=== PATIENT | female | born 1990 | race Caucasian/White ===

== ENCOUNTER → 2016-03-15 | Outpatient (CLI) | payer OTHER | LOC: RAD 09:40 | PROVIDERS: ATTEND Family Medicine | DX: R11.0 Nausea (principal); R10.2 Pelvic and perineal pain; K25.9 Gastric ulcer, unspecified as acute or chronic, without hemorrhage or perforation | CPT/HCPCS: 74176 ==

== ENCOUNTER → 2016-03-15 | Outpatient (CLI) | payer OTHER | LOC: CCC 10:10 | DX: E06.3 Autoimmune thyroiditis (principal) | CPT/HCPCS: 36415; 84443 ==

== ENCOUNTER 2016-04-25 12:50 | Emergency (ER) | payer OTHER ==
[2016-04-25 13:01] VITALS: BP 138/92
--- NOTE | 2016-04-25 13:08 | ER Document Report ---
ED Medical Screen (RME) - General Stated Complaint: NAUSEA,HEADACHE,BLURRED VISION Notes: 25 yo female c/o headache, dizziness, blurred double vision x 2 days. + cold s/ s x 4 days. +nausea, no fever TRAVEL OUTSIDE OF THE [place] IN LAST 30 DAYS: No - Related Data Allergies/Adverse Reactions: banana [Banana] Allergy (Severe, Verified 04/25/16 13:04) Anaphylaxis fluticasone propionate [From Flonase] Allergy (Intermediate, Verified 04/25/16 13:04) nasal congestion levothyroxine sodium [Levothyroxine Sodium] Allergy (Mild, Verified 04/25/16 13: 04) methocarbamol [From Robaxin] Adverse Reaction (Severe, Verified 04/25/16 13:04) Past Medical History - Past Medical History Cardiac Medical History: Reports: Hx Hypertension Pulmonary Medical History: Reports: Hx Asthma Neurological Medical History: Reports: Hx Seizures Endocrine Medical History: Reports: Hx Hypothyroidism GI Medical History: Reports: Hx Diverticulitis, Hx Gastritis, Hx Gastroesophageal Reflux Disease, Hx Hiatal Hernia Musculoskeltal Medical History: Reports Hx Musculoskeletal Trauma Psychiatric Medical History: Reports: Hx Anxiety, Hx Bipolar Disorder, Hx Borderline Personality Disorder, Hx Depression, Hx Schizophrenia Traumatic Medical History: Reports: Hx Fractures - 5th toe bilaterally Past Surgical History: Reports: Hx Cholecystectomy - Immunizations Hx Diphtheria, Pertussis, Tetanus Vaccination: Yes Physical Exam - Vital signs Vitals: Temp Pulse Resp BP Pulse Ox 98.3 F 91 16 138/92 H 97 04/25/16 12:58 04/25/16 12:58 04/25/16 12:58 04/25/16 12:58 04/25/16 12:58 Course - Vital Signs Vital signs: Temp Pulse Resp BP Pulse Ox 98.3 F 91 16 138/92 H 97 04/25/16 12:58 04/25/16 12:58 04/25/16 12:58 04/25/16 12:58 04/25/16 12:58
[2016-04-25 13:38] LABS: ABSOLUTE BASOPHILS # (AUTO) 0.1 10^3/uL (0.0-0.2); ABSOLUTE EOSINOPHILS # (AUTO) 0.4 10^3/uL (0.0-0.6); ABSOLUTE LYMPHOCYTES (AUTO) 2.9 10^3/uL (0.5-4.7); ABSOLUTE MONOCYTES (AUTO) 0.6 10^3/uL (0.1-1.4); ABSOLUTE NEUT (AUTO) 5.9 10^3/uL (1.7-8.2); BASOPHILS % (AUTO) 0.8 % (0-2); EOSINOPHILS % (AUTO) 4.3 % (0-6); HEMATOCRIT 44.5 % (36.0-47.0); HGB HCT DIFFERENCE 0.5; LYMPHOCYTES % (AUTO) 29.8 % (13-45); MEAN CORPUSCULAR HEMOGLOBIN 28.1 pg (27.0-33.4); MEAN CORPUSCULAR HGB CONC 33.6 g/dL (32.0-36.0); MEAN CORPUSCULAR VOLUME 84 fl (80-97); MONOCYTES % (AUTO) 5.8 % (3-13); RED BLOOD COUNT 5.33 10^6/uL (3.72-5.28); SEGMENTED NEUTROPHILS % (AUTO) 59.3 % (42-78); WHITE BLOOD COUNT 9.9 10^3/uL (4.0-10.5)
[2016-04-25 13:42] LABS: APPEARANCE,URINE SLIGHTLY-CLOUDY; BILIRUBIN,URINE NEGATIVE (NEGATIVE); GLUCOSE, URINE NEGATIVE (NEGATIVE); KETONES,URINE NEGATIVE (NEGATIVE); LEUKOCYTE ESTERASE,URINE SMALL (NEGATIVE); NITRITE,URINE NEGATIVE (NEGATIVE); PROTEIN,URINE NEGATIVE (NEGATIVE); URINE SPECIFIC GRAVITY 1.015; UROBILINOGEN,URINE NEGATIVE mg/dL (<2.0)
[2016-04-25 13:54] LABS: ALANINE AMINOTRANSFERASE 48 U/L (9-52); ALBUMIN 3.9 g/dL (3.5-5.0); ALKALINE PHOSPHATASE 78 U/L (38-126); ANION GAP 9 (5-19); ASPARTATE AMINO TRANSFERASE 28 U/L (14-36); BILIRUBIN,TOTAL 0.5 mg/dL (0.2-1.3); BLOOD UREA NITROGEN 10 mg/dL (7-20); CALCIUM 9.6 mg/dL (8.4-10.2); CARBON DIOXIDE 26 mmol/L (22-30); CHLORIDE 104 mmol/L (98-107); CREATININE RESULT 0.75 mg/dL (0.52-1.25); GLUCOSE 85 mg/dL (75-110); POTASSIUM 4.6 mmol/L (3.6-5.0); TOTAL PROTEIN 7.3 g/dL (6.3-8.2)
--- NOTE | 2016-04-25 14:37 | ER Document Report ---
HPI - HPI Patient complains to provider of: head congestion and headache dizziness Onset: Other - Saturday Onset/Duration: Gradual Quality of pain: Throbbing Pain Level: 3 Context: 25-year-old female complaining of upper respiratory symptoms, head congestion, cough, headache, fever. on saturday she developed dizziness which she described as a sensation of movement vertigo. No chest pain or shortness of breath. No abdominal pain. Some nausea without vomiting or diarrhea. Associated Symptoms: None Exacerbated by: Denies Relieved by: Denies Similar symptoms previously: No Recently seen / treated by doctor: No - ROS ROS below otherwise negative: Yes Systems Reviewed and Negative: Yes All other systems reviewed and negative - REPRODUCTIVE LMP: 02/09/16 irregular Reproductive: DENIES: : - DERM Skin Color: Normal Past Medical History - General Information source: Patient - Social History Smoking Status: Never Smoker Chew tobacco use (# tins/day): No Frequency of alcohol use: Rare Lives with: Parents Family History: Reviewed & Not Pertinent Patient has suicidal ideation: No Patient has homicidal ideation: No - Past Medical History Cardiac Medical History: Reports: Hx Hypertension Pulmonary Medical History: Reports: Hx Asthma Neurological Medical History: Reports: Hx Seizures Endocrine Medical History: Reports: Hx Hypothyroidism Renal/ Medical History: Denies: Hx Peritoneal Dialysis GI Medical History: Reports: Hx Diverticulitis, Hx Gastritis, Hx Gastroesophageal Reflux Disease, Hx Hiatal Hernia Musculoskeltal Medical History: Reports Hx Musculoskeletal Trauma Psychiatric Medical History: Reports: Hx Anxiety, Hx Bipolar Disorder, Hx Borderline Personality Disorder, Hx Depression, Hx Schizophrenia Traumatic Medical History: Reports: Hx Fractures - 5th toe bilaterally Past Surgical History: Reports: Hx Cholecystectomy - Immunizations Hx Diphtheria, Pertussis, Tetanus Vaccination: Yes Vertical Provider Document - CONSTITUTIONAL Agree With Documented VS: Yes Exam Limitations: No Limitations - INFECTION CONTROL TRAVEL OUTSIDE OF THE [place] IN LAST 30 DAYS: No - HEENT HEENT: Normocephalic, PERRLA, Pharyngeal Erythema - Minimal. negative: Conjuctival Injection, Tympanic Membrane Red, Tympanic Membrane Bulging - NECK Neck: Supple. negative: Lymphadenopathy-Left, Lymphadenopathy-Right - RESPIRATORY Respiratory: Breath Sounds Normal, No Respiratory Distress O2 Sat by Pulse Oximetry: 97 - CARDIOVASCULAR Cardiovascular: Regular Rate, Regular Rhythm - GI/ABDOMEN Gastrointestinal: Abdomen Soft, Abdomen Non-Tender, No Organomegaly - MUSCULOSKELETAL/EXTREMETIES Musculoskeletal/Extremeties: MAEW, FROM - NEURO Level of Consciousness: Awake, Alert Motor/Sensory: No Motor Deficit, No Sensory Deficit - DERM Integumentary: Warm, Dry, No Rash Course - Re-evaluation Re-evalutation: 04/25/16 16:20 Vertigo is gone after the meclizine and her test is negative. All the other labs are negative and explained this to the patient that she will need to follow-up with [facility], she gets worse to the emergency room. - Vital Signs Vital signs: Temp Pulse Resp BP Pulse Ox 98.3 F 91 16 138/92 H 97 04/25/16 12:58 04/25/16 12:58 04/25/16 12:58 04/25/16 12:58 04/25/16 12:58 - Laboratory Result Diagrams: 04/25/16 13:20 04/25/16 13:20 Laboratory results interpreted by me: 04/25/16 04/25/16 13:15 13:20 RBC 5.33 H Ur Leukocyte Esterase SMALL H Discharge - Discharge Clinical Impression: Vertigo, Nausea, elevated blood pressure reading Upper respiratory infection Qualifiers: URI type: unspecified viral URI Qualified Code(s): J06.9 - Acute upper respiratory infection, unspecified Condition: Good Disposition: HOME, SELF-CARE Instructions: Acetaminophen, Upper Respiratory Illness ([facility]), [facility] Additional Instructions: Return to the emergency room if worse [facility] recheck Rest Plenty of fluids Prescriptions: Meclizine HCl 25 mg PO PC #30 tablet Forms: Return to Work
[2016-04-25] MEDS ORDERED: MECLIZINE HCL 25 MG TABLET PO ONE (15:13)
[2016-04-25] MEDS ORDERED: ACETAMINOPHEN 325 MG TABLET PO ONE (15:13)
== END 2016-04-25 17:05 | disposition home or self-care (01) ==
LOC: ER 12:50
DX: J06.9 Acute upper respiratory infection, unspecified (principal); R42 Dizziness and giddiness; R11.0 Nausea; I10 Essential (primary) hypertension; J45.909 Unspecified asthma, uncomplicated; E03.9 Hypothyroidism, unspecified; K21.9 Gastro-esophageal reflux disease without esophagitis; Z90.49 Acquired absence of other specified parts of digestive tract
CPT/HCPCS: 36415; 80053; 81001; 84702; 85025; 99284

== ENCOUNTER 2016-10-02 16:56 | Emergency (ER) | payer OTHER ==
--- NOTE | 2016-10-02 17:24 | ER Document Report ---
ED Medical Screen (RME) - General Chief Complaint: Abdominal Pain Stated Complaint: ABDOMINAL PAIN Time Seen by Provider: 10/02/16 17:22 Notes: Patient has several complaints. She states that she has rhinorrhea and sore throat. She also states that for 3 days she had diffuse abdominal pain. She also states that she may have a latex reaction in her vaginal area. TRAVEL OUTSIDE OF THE [place] IN LAST 30 DAYS: No - Related Data Allergies/Adverse Reactions: banana [Banana] Allergy (Severe, Verified 10/02/16 17:00) Anaphylaxis fluticasone propionate [From Flonase] Allergy (Intermediate, Verified 10/02/16 17:00) nasal congestion levothyroxine sodium [Levothyroxine Sodium] Allergy (Mild, Verified 10/02/16 17: 00) methocarbamol [From Robaxin] Adverse Reaction (Severe, Verified 10/02/16 17:00) Past Medical History - Past Medical History Cardiac Medical History: Reports: Hx Hypertension Pulmonary Medical History: Reports: Hx Asthma Neurological Medical History: Reports: Hx Seizures Endocrine Medical History: Reports: Hx Hypothyroidism Renal/ Medical History: Denies: Hx Peritoneal Dialysis GI Medical History: Reports: Hx Diverticulitis, Hx Gastritis, Hx Gastroesophageal Reflux Disease, Hx Hiatal Hernia Musculoskeltal Medical History: Reports Hx Musculoskeletal Trauma Psychiatric Medical History: Reports: Hx Anxiety, Hx Bipolar Disorder, Hx Borderline Personality Disorder, Hx Depression, Hx Schizophrenia Traumatic Medical History: Reports: Hx Fractures - 5th toe bilaterally Past Surgical History: Reports: Hx Cholecystectomy - Immunizations Hx Diphtheria, Pertussis, Tetanus Vaccination: Yes Physical Exam - Vital signs Vitals: Temp Pulse Resp BP Pulse Ox 98.5 F 93 18 142/103 H 98 10/02/16 17:02 10/02/16 17:02 10/02/16 17:02 10/02/16 17:02 10/02/16 17:02 Course - Vital Signs Vital signs: Temp Pulse Resp BP Pulse Ox 98.5 F 93 18 142/103 H 98 10/02/16 17:02 10/02/16 17:02 10/02/16 17:02 10/02/16 17:02 10/02/16 17:02
[2016-10-02 17:51] LABS: ABSOLUTE EOSINOPHILS # (AUTO) 0.4 10^3/uL (0.0-0.6); ABSOLUTE LYMPHOCYTES (AUTO) 2.7 10^3/uL (0.5-4.7); ABSOLUTE MONOCYTES (AUTO) 0.7 10^3/uL (0.1-1.4); ABSOLUTE NEUT (AUTO) 4.9 10^3/uL (1.7-8.2); BASOPHILS % (AUTO) 0.6 % (0-2); EOSINOPHILS % (AUTO) 4.2 % (0-6); HEMATOCRIT 42.4 % (36.0-47.0); HEMOGLOBIN 14.2 g/dL (12.0-15.5); HGB HCT DIFFERENCE 0.2; LYMPHOCYTES % (AUTO) 30.5 % (13-45); MEAN CORPUSCULAR HEMOGLOBIN 28.6 pg (27.0-33.4); MEAN CORPUSCULAR HGB CONC 33.6 g/dL (32.0-36.0); MEAN CORPUSCULAR VOLUME 85 fl (80-97); MONOCYTES % (AUTO) 8.1 % (3-13); RED BLOOD COUNT 4.99 10^6/uL (3.72-5.28); RED CELL DISTRIBUTION WIDTH 13.5 % (11.5-14.0); SEGMENTED NEUTROPHILS % (AUTO) 56.6 % (42-78); WHITE BLOOD COUNT 8.7 10^3/uL (4.0-10.5)
[2016-10-02 17:53] LABS: APPEARANCE,URINE SLIGHTLY-CLOUDY; BILIRUBIN,URINE NEGATIVE (NEGATIVE); GLUCOSE, URINE NEGATIVE (NEGATIVE); KETONES,URINE NEGATIVE (NEGATIVE); LEUKOCYTE ESTERASE,URINE TRACE (NEGATIVE); NITRITE,URINE NEGATIVE (NEGATIVE); PROTEIN,URINE NEGATIVE (NEGATIVE); URINE SPECIFIC GRAVITY 1.008; UROBILINOGEN,URINE NEGATIVE mg/dL (<2.0)
[2016-10-02 18:12] LABS: ALANINE AMINOTRANSFERASE 84 U/L (9-52); ALBUMIN 4.5 g/dL (3.5-5.0); ALKALINE PHOSPHATASE 94 U/L (38-126); ANION GAP 12 (5-19); ASPARTATE AMINO TRANSFERASE 76 U/L (14-36); BILIRUBIN,DIRECT 0.3 mg/dL (0.0-0.4); BILIRUBIN,TOTAL 0.5 mg/dL (0.2-1.3); BLOOD UREA NITROGEN 9 mg/dL (7-20); CALCIUM 9.9 mg/dL (8.4-10.2); CARBON DIOXIDE 27 mmol/L (22-30); CHLORIDE 103 mmol/L (98-107); CREATININE RESULT 0.96 mg/dL (0.52-1.25); GLUCOSE 99 mg/dL (75-110); POTASSIUM 4.8 mmol/L (3.6-5.0); SODIUM 142.2 mmol/L (137-145); TOTAL PROTEIN 7.9 g/dL (6.3-8.2)
--- NOTE | 2016-10-02 18:34 | ER Document Report ---
ED GI/ - General Mode of Arrival: Ambulatory Information source: Patient TRAVEL OUTSIDE OF THE [place] IN LAST 30 DAYS: No - HPI Patient complains to provider of: Abdominal pain Associated symptoms: Other - See above <FARIDEH ESTEBAN - Last Filed: 10/02/16 19:18> <FARTUN JAMES - Last Filed: 10/02/16 22:44> - General Chief Complaint: Abdominal Pain Stated Complaint: ABDOMINAL PAIN Time Seen by Provider: 10/02/16 17:22 Notes: Patient is a 25 year old female who presents to the emergency department complaining of vaginal pain onset 3 days ago. Patient reports that she was using a sex toy 3 days ago and felt burning when she first inserted the toy and has since noticed some white clumpy discharge and some vaginal bleeding that she believes is due to rawness of the skin. Patient states that this is not a new toy and she used her normal lubricant as well. Patient also complains of burning around her vagina when she urinates, abdominal pain that is worsening, a sore throat that started yesterday and today a runny nose. Patient reports that she has also had rib pain for the past few weeks and that the rib pain seems to exacerbate her abdominal pain. Both the rib pain and abdominal pain are relived by laying down. Patient denies hematuria, fever, and constipation. (FARIDEH ESTEBAN) - Related Data Allergies/Adverse Reactions: banana [Banana] Allergy (Severe, Verified 10/02/16 17:00) Anaphylaxis fluticasone propionate [From Flonase] Allergy (Intermediate, Verified 10/02/16 17:00) nasal congestion levothyroxine sodium [Levothyroxine Sodium] Allergy (Mild, Verified 10/02/16 17: 00) methocarbamol [From Robaxin] Adverse Reaction (Severe, Verified 10/02/16 17:00) Past Medical History - General Information source: Patient - Social History Smoking Status: Never Smoker Frequency of alcohol use: Social Drug Abuse: None Family History: Reviewed & Not Pertinent Patient has suicidal ideation: No Patient has homicidal ideation: No - Past Medical History Cardiac Medical History: Reports: Hx Hypertension Pulmonary Medical History: Reports: Hx Asthma Neurological Medical History: Reports: Hx Seizures Endocrine Medical History: Reports: Hx Hypothyroidism GI Medical History: Reports: Hx Diverticulitis, Hx Gastritis, Hx Gastroesophageal Reflux Disease, Hx Hiatal Hernia Musculoskeltal Medical History: Reports Hx Musculoskeletal Trauma Psychiatric Medical History: Reports: Hx Anxiety, Hx Bipolar Disorder, Hx Borderline Personality Disorder, Hx Depression, Hx Schizophrenia Traumatic Medical History: Reports: Hx Fractures - 5th toe bilaterally Past Surgical History: Reports: Hx Cholecystectomy - Immunizations Hx Diphtheria, Pertussis, Tetanus Vaccination: Yes <FARIDEH ESTEBAN - Last Filed: 10/02/16 19:18> Review of Systems - Review of Systems Constitutional: denies: Fever EENT: See HPI, Nose discharge, Throat pain Cardiovascular: No symptoms reported Respiratory: No symptoms reported Gastrointestinal: See HPI, Abdominal pain. denies: Constipation Genitourinary: See HPI, Burning. denies: Hematuria Female Genitourinary: See HPI, Vaginal discharge, Vaginal bleeding, Painful intercourse - toy Musculoskeletal: See HPI, Other - rib pain Skin: No symptoms reported Hematologic/Lymphatic: No symptoms reported Neurological/Psychological: No symptoms reported -: Yes All other systems reviewed and negative <FARIDEH ESTEBAN - Last Filed: 10/02/16 19:18> Physical Exam <FARIDEH ESTEBAN - Last Filed: 10/02/16 19:18> <FARTUN JAMES - Last Filed: 10/02/16 22:44> - Vital signs Vitals: Temp Pulse Resp BP Pulse Ox 98.5 F 93 18 142/103 H 98 10/02/16 17:02 10/02/16 17:02 10/02/16 17:02 10/02/16 17:02 10/02/16 17:02 - Notes Notes: GENERAL: Alert, interacts well. No acute distress. HEAD: Normocephalic, atraumatic. EYES: Pupils equal, round, and reactive to light. Extraocular movements intact. ENT: Oral mucosa moist, tongue midline. Some post nasal drip. Small amount of clear rhinorrhea. No nasal septal hematoma. Left TM injected. NECK: Full range of motion. Supple. Trachea midline. LUNGS: Clear to auscultation bilaterally, no wheezes, rales, or rhonchi. No respiratory distress. HEART: Regular rate and rhythm. No murmurs, gallops, or rubs. ABDOMEN: Bilateral upper quadrants tender to palpation, some guarding. Right lower quadrant also tender to palpation. Non-distended. Bowel sounds present in all 4 quadrants. GENITOURINARY: Thick white discharge. Cervical motion tenderness to palpation. EXTREMITIES: Moves all 4 extremities spontaneously. No edema, radial and dorsalis pedis pulses 2/4 bilaterally. No cyanosis. NEUROLOGICAL: Alert and oriented x3. Normal speech. PSYCH: Normal affect, normal mood. SKIN: Warm, dry, normal turgor. No rashes or lesions noted. (FARIDEH ESTEBAN) Course - Laboratory Result Diagrams: 10/02/16 17:15 10/02/16 17:15 <FARIDEH ESTEBAN - Last Filed: 10/02/16 19:18> - Laboratory Result Diagrams: 10/02/16 17:15 10/02/16 17:15 <FARTUN JAMES - Last Filed: 10/02/16 22:44> - Re-evaluation Re-evalutation: 10/02/16 18:59 No evidence of surgical abdomen, normal WBC, patient has cervical motion tenderness on examination, recommend treating for pelvic inflammatory disease. I did check a swab for gonorrhea and chlamydia as well as wet prep. Patient will be called with these results, empiric treatment will be started for PID in the form of Rocephin, Flagyl, doxycycline. Patient will be discharged to home. Patient's upper respiratory symptoms are consistent with upper respiratory infection caused by virus. Treat with Tessalon Perles to decrease cough, recommended decongestants for her nasal congestion and discharge to home. ( FARTUN JAMES) - Vital Signs Vital signs: Temp Pulse Resp BP Pulse Ox 99.0 F 84 16 138/95 H 98 10/02/16 19:20 10/02/16 19:20 10/02/16 19:20 10/02/16 19:20 10/02/16 19:20 - Laboratory Laboratory results interpreted by me: 10/02/16 10/02/16 17:15 17:15 AST 76 H ALT 84 H Ur Leukocyte Esterase TRACE H Discharge <FARIDEH ESTEBAN - Last Filed: 10/02/16 19:18> <FARTUN JAMES - Last Filed: 10/02/16 22:44> - Discharge Clinical Impression: Elevated blood pressure reading without diagnosis of hypertension, PID (acute pelvic inflammatory disease), Viral upper respiratory tract infection with cough Condition: Stable Disposition: HOME, SELF-CARE Additional Instructions: Pelvic Inflammatory Disease You have been diagnosed as having pelvic inflammatory disease (PID). This is an infection of the fallopian tubes and surrounding areas of the pelvis. Symptoms are usually pelvic pain and discharge. The infection can do permanent damage to the tubes and ovaries. It should be taken very seriously. Treatment is antibiotics, which may be given by vein or by injection if the infection seems serious. It's important that you receive all recommended medication. Condoms help prevent spread of this infection to others. Because this infection is spread sexually, it's important that your sexual partner be checked before resuming sexual relations. If a culture shows gonorrhea or chlamydia organisms, the law requires that this be reported to the health department. Call the doctor or return at once if you develop increasing fever, rash, severe pelvic pain, vaginal bleeding (other than your period), or problems with your bladder or bowels. Upper Respiratory Illness You have a viral infection of the respiratory passages -- a "cold." This common infection causes nasal congestion, drainage, and often sore throat and cough. It is caused by a virus and is highly contagious. The disease usually lasts a week or more, though the worst symptoms are usually over in 3 or 4 days. There is no "cure" for the viral infection -- it must run its course. If there is a complication, such as bacterial infection in the nose, sinuses, middle ear, or bronchial tubes, antibiotics may be required, but antibiotics won 't affect the virus. If you smoke, you should STOP!! Drink plenty of fluids. A humidifier may help. An expectorant medication or decongestant may make you more comfortable. Use acetaminophen or ibuprofen for fever or aches. See the doctor if fever persists over two or three days, if there is any significant worsening of your symptoms, or if you simply fail to improve as expected. Prescriptions: Benzonatate [Tessalon Perles 100 mg Capsule] 100 mg PO ASDIR PRN #40 capsule PRN Reason: Doxycycline Hyclate 100 mg PO BID #28 capsule Fluconazole [Diflucan] 150 mg PO ONCE PRN #1 tablet PRN Reason: Metronidazole [Flagyl 500 mg Tablet] 500 mg PO Q6H #40 tablet Scribe Attestation: 10/02/16 22:44 I personally performed the services described in the documentation, reviewed and edited the documentation which was dictated to the scribe in my presence, and it accurately records my words and actions. (FARTUN JAMES) Scribe Documentation - Scribe Written by Kaia:: kaia Montgomery, 10/02/16, 1917 acting as scribe for :: Nancy <FARIDEH ESTEBAN - Last Filed: 10/02/16 19:18>
[2016-10-02] MEDS ORDERED: METRONIDAZOLE 500 MG TABLET PO ONE (18:58)
[2016-10-02] MEDS ORDERED: CEFTRIAXONE INJ 250 MG VIAL IM ONE (18:58)
[2016-10-02] MEDS ORDERED: FLUCONAZOLE 100 MG TABLET PO ONE (18:58)
[2016-10-02] MEDS ORDERED: DOXYCYCLINE HYCLATE 100 MG TABLET PO ONE (18:58)
[2016-10-02 19:23] VITALS: BP 138/95
[2016-10-02 21:02] LABS: CHLAM PCR NOT DETECTED (NOT DETECT)
== END 2016-10-02 19:40 | disposition home or self-care (01) ==
LOC: ER 16:56
DX: N73.9 Female pelvic inflammatory disease, unspecified (principal); J06.9 Acute upper respiratory infection, unspecified; R05 Cough; R03.0 Elevated blood-pressure reading, without diagnosis of hypertension; R10.9 Unspecified abdominal pain; R10.2 Pelvic and perineal pain; R07.81 Pleurodynia
CPT/HCPCS: 99284; 96372; 36415; 87210; 85025; 81025; 80053; 81001; 87491; 87591; J0696

== ENCOUNTER → 2017-11-13 | Outpatient (CLI) | payer OTHER ==
[2017-11-13 12:48] LABS: ABSOLUTE BASOPHILS # (AUTO) 0.1 10^3/uL (0.0-0.2); ABSOLUTE EOSINOPHILS # (AUTO) 0.5 10^3/uL (0.0-0.6); ABSOLUTE LYMPHOCYTES (AUTO) 2.6 10^3/uL (0.5-4.7); ABSOLUTE MONOCYTES (AUTO) 0.5 10^3/uL (0.1-1.4); ABSOLUTE NEUT (AUTO) 4.8 10^3/uL (1.7-8.2); BASOPHILS % (AUTO) 0.6 % (0-2); EOSINOPHILS % (AUTO) 5.8 % (0-6); HEMATOCRIT 43.1 % (36.0-47.0); HEMOGLOBIN 14.6 g/dL (12.0-15.5); LYMPHOCYTES % (AUTO) 31.1 % (13-45); MEAN CORPUSCULAR HEMOGLOBIN 29.3 pg (27.0-33.4); MEAN CORPUSCULAR HGB CONC 33.8 g/dL (32.0-36.0); MEAN CORPUSCULAR VOLUME 87 fl (80-97); MONOCYTES % (AUTO) 6.1 % (3-13); PLATELET COUNT 315 10^3/uL (150-450); RED BLOOD COUNT 4.97 10^6/uL (3.72-5.28); RED CELL DISTRIBUTION WIDTH 13.2 % (11.5-14.0); SEGMENTED NEUTROPHILS % (AUTO) 56.4 % (42-78); TOTAL CELLS COUNTED % (AUTO) 100 %; WHITE BLOOD COUNT 8.4 10^3/uL (4.0-10.5)
[2017-11-13 13:22] LABS: ALANINE AMINOTRANSFERASE 30 U/L (9-52); ALBUMIN 3.8 g/dL (3.5-5.0); ALKALINE PHOSPHATASE 57 U/L (38-126); ANION GAP 10 (5-19); ASPARTATE AMINO TRANSFERASE 27 U/L (14-36); BILIRUBIN,DIRECT 0.3 mg/dL (0.0-0.4); BILIRUBIN,TOTAL 0.4 mg/dL (0.2-1.3); BLOOD UREA NITROGEN 7 mg/dL (7-20); CALCIUM 9.3 mg/dL (8.4-10.2); CARBON DIOXIDE 24 mmol/L (22-30); CHLORIDE 107 mmol/L (98-107); CHOLESTEROL 180.27 mg/dL (0-200); GLUCOSE 79 mg/dL (75-110); POTASSIUM 4.6 mmol/L (3.6-5.0); SODIUM 140.8 mmol/L (137-145); TOTAL PROTEIN 6.6 g/dL (6.3-8.2); TRIGLYCERIDES 205 mg/dL (<150)
[2017-11-13 13:33] LABS: DIRECT LDL 120 mg/dL (<100)
== END ==
LOC: CCC 12:08
DX: M79.7 Fibromyalgia (principal); E03.9 Hypothyroidism, unspecified
CPT/HCPCS: 36415; 80053; 80061; 83036; 84443; 85025

== ENCOUNTER 2017-12-26 15:42 | Emergency (ER) | payer OTHER ==
[2017-12-26 15:55] VITALS: BP 145/97
[2017-12-26] MEDS ORDERED: HYDROCODONE BIT/HOMATROPINE SYRUP 5 ML UDCUP PO ONE (16:41)
[2017-12-26] MEDS ORDERED: IPRATROPIUM/ALBUTEROL 0.5-2.5 MG/3 ML AMPUL NEB ONE (16:41)
[2017-12-26] MEDS ORDERED: PREDNISONE 20 MG TABLET PO ONE (16:41)
--- NOTE | 2017-12-26 18:18 | ER Document Report ---
ED Respiratory Problem - General Chief Complaint: Chest Congestion Stated Complaint: COUGH Time Seen by Provider: 12/26/17 16:41 TRAVEL OUTSIDE OF THE [place] IN LAST 30 DAYS: No - Related Data Allergies/Adverse Reactions: banana [Banana] Allergy (Severe, Verified 12/26/17 15:42) Anaphylaxis fluticasone propionate [From Flonase] Allergy (Intermediate, Verified 12/26/17 15:42) nasal congestion levothyroxine sodium [Levothyroxine Sodium] Allergy (Mild, Verified 12/26/17 15: 42) methocarbamol [From Robaxin] Adverse Reaction (Severe, Verified 12/26/17 15:42) Past Medical History - Social History Smoking Status: Former Smoker Chew tobacco use (# tins/day): No Frequency of alcohol use: Social Drug Abuse: None Family History: Reviewed & Not Pertinent Patient has suicidal ideation: No Patient has homicidal ideation: No - Past Medical History Cardiac Medical History: Reports: Hx Hypertension Pulmonary Medical History: Reports: Hx Asthma Neurological Medical History: Reports: Hx Seizures Endocrine Medical History: Reports: Hx Hypothyroidism Renal/ Medical History: Denies: Hx Peritoneal Dialysis GI Medical History: Reports: Hx Diverticulitis, Hx Gastritis, Hx Gastroesophageal Reflux Disease, Hx Hiatal Hernia Musculoskeletal Medical History: Reports Hx Musculoskeletal Trauma Psychiatric Medical History: Reports: Hx Anxiety, Hx Bipolar Disorder, Hx Borderline Personality Disorder, Hx Depression, Hx Schizophrenia Traumatic Medical History: Reports: Hx Fractures - 5th toe bilaterally Past Surgical History: Reports: Hx Cholecystectomy - Immunizations Hx Diphtheria, Pertussis, Tetanus Vaccination: Yes Physical Exam - Vital signs Vitals: Temp Pulse Resp BP Pulse Ox 98.5 F 85 18 145/97 H 99 12/26/17 15:53 12/26/17 15:53 12/26/17 15:53 12/26/17 15:53 12/26/17 15:53 Course - Vital Signs Vital signs: Temp Pulse Resp BP Pulse Ox 98.5 F 85 18 145/97 H 99 12/26/17 15:53 12/26/17 15:53 12/26/17 15:53 12/26/17 15:53 12/26/17 15:53 Discharge - Discharge Clinical Impression: Asthmatic bronchitis Qualifiers: Asthma severity: moderate Asthma persistence: persistent Asthma complication type: with acute exacerbation Qualified Code(s): J45.41 - Moderate persistent asthma with (acute) exacerbation Condition: Fair Disposition: HOME, SELF-CARE Instructions: Bronchospasm ([facility]), Bronchitis With Bronchospasm (Wheezing) ([facility]) Prescriptions: Albuterol Sulfate [Proair HFA] 1 - 2 puff IH Q4 PRN #1 inhaler PRN Reason: Azithromycin [Zithromax Tri-José Miguel] 500 mg PO DAILY #1 pkg Benzonatate [Tessalon Perles 100 mg Capsule] 100 mg PO ASDIR PRN #40 capsule PRN Reason: Hydrocodone/Chlorphen P-Stirex [Tussionex Pennkinetic Susp] 5 ml PO BID #100 leatha.er.12h Prednisone 10 mg PO ASDIR PRN 6 Days #1 tab.ds.pk PRN Reason: Referrals: [facility] [NO LOCAL MD] - Follow up as needed
== END 2017-12-26 18:24 | disposition home or self-care (01) ==
LOC: ER 15:42
DX: J45.41 Moderate persistent asthma with (acute) exacerbation (principal); I10 Essential (primary) hypertension; Z90.49 Acquired absence of other specified parts of digestive tract
CPT/HCPCS: 94640; 99283; J7512; J7620

== ENCOUNTER 2018-01-24 17:40 | Emergency (ER) | payer OTHER ==
[2018-01-24 17:49] VITALS: BP 132/95
[2018-01-24] MEDS ORDERED: VALACYCLOVIR HCL 500 MG TABLET PO ONE (20:32)
[2018-01-24] MEDS ORDERED: LIDOCAINE 1% INJ-PF (10 MG/ML) 30 ML SDV IM ONE (20:32)
[2018-01-24] MEDS ORDERED: CEFTRIAXONE INJ 250 MG VIAL IM ONE (20:32)
[2018-01-24] MEDS ORDERED: AZITHROMYCIN 250 MG TABLET PO ONE (20:32)
[2018-01-24] MEDS ORDERED: IBUPROFEN 800 MG TABLET PO ONE (20:34)
--- NOTE | 2018-01-24 20:35 | ER Document Report ---
HPI - HPI Patient complains to provider of: Allergic reaction Onset: Other - 6 days Onset/Duration: Worse Quality of pain: Burning Pain Level: 4 Context: Patient states that she recently had intercourse last week and her partner used a latex condom. Patient states that she is allergic to latex and feels that she is having skin lesions and a burning to the vaginal area and is concerned about allergic reaction from the use of the condom 6 days ago. Patient states that she has not had any recent unprotected intercourse for several months. Patient does complain of dysuria. Patient denies any frequency. Patient denies any fever. Patient denies any history of sexually transmitted infection. Associated Symptoms: Other - Dysuria, rash to perineum. denies: Fever Exacerbated by: Denies Relieved by: Denies Similar symptoms previously: No Recently seen / treated by doctor: No - ROS ROS below otherwise negative: Yes Systems Reviewed and Negative: Yes All other systems reviewed and negative - CONSTITUTIONAL Constitutional: DENIES: Fever - EENT EENT: DENIES: Sore Throat - GASTROINTESTINAL Gastrointestinal: DENIES: Abdominal Pain, Nausea - URINARY Urinary: REPORTS: Dysuria - REPRODUCTIVE Reproductive: DENIES: : - MUSCULOSKELETAL Musculoskeletal: DENIES: Extremity pain - DERM Skin Color: Normal Skin Problems: Rash Past Medical History - General Information source: Patient - Social History Smoking Status: Current Every Day Smoker Smoking Education Provided: Yes Frequency of alcohol use: None Drug Abuse: None Occupation: medical secretary receptionist Family History: Reviewed & Not Pertinent Pulmonary Medical History: Reports: Hx Asthma Neurological Medical History: Reports: Hx Seizures Endocrine Medical History: Reports: Hx Hypothyroidism, Other - Bk's Renal/ Medical History: Denies: Hx Peritoneal Dialysis GI Medical History: Reports: Hx Diverticulitis, Hx Gastritis, Hx Gastroesophageal Reflux Disease, Hx Hiatal Hernia Musculoskeletal Medical History: Reports Hx Musculoskeletal Trauma Psychiatric Medical History: Reports: Hx Anxiety, Hx Bipolar Disorder, Hx Borderline Personality Disorder, Hx Depression, Hx Schizophrenia Traumatic Medical History: Reports: Hx Fractures - 5th toe bilaterally Past Surgical History: Reports: Hx Cholecystectomy - Immunizations Hx Diphtheria, Pertussis, Tetanus Vaccination: Yes Vertical Provider Document - CONSTITUTIONAL Agree With Documented VS: Yes Exam Limitations: No Limitations General Appearance: WD/WN, No Apparent Distress - INFECTION CONTROL TRAVEL OUTSIDE OF THE [place] IN LAST 30 DAYS: No - HEENT HEENT: Atraumatic, Normocephalic - NECK Neck: Normal Inspection, Supple. negative: Lymphadenopathy-Left, Lymphadenopathy-Right - RESPIRATORY Respiratory: Breath Sounds Normal, No Respiratory Distress - CARDIOVASCULAR Cardiovascular: Regular Rate, Regular Rhythm - GI/ABDOMEN Gastrointestinal: Abdomen Soft - REPRODUCTIVE Female Genitalia: Abnormal Inspection - Clear yellow vaginal discharge, patient with right inguinal lymphadenopathy, patient with tender shallow ulcerations to vaginal introitus. negative: CMT, Adnexal Pain-Right, Adnexal Pain-Left - BACK Back: Normal Inspection. negative: CVA Tenderness-Right, CVA Tenderness-Left - MUSCULOSKELETAL/EXTREMETIES Musculoskeletal/Extremeties: MAFAITH, FROM - NEURO Level of Consciousness: Awake, Alert, Appropriate Motor/Sensory: No Motor Deficit - DERM Integumentary: Warm, Dry, Rash - See genitourinary Course - Re-evaluation Re-evalutation: 01/24/18 Patient presents with painful shallow ulcerations that are concerning about genital herpes infection. Patient also advised of positive trichomonas test results. Patient encouraged to have her partner seek treatment for trichomonas to prevent recurrence. Patient encouraged to follow-up with the health department if she would like to have additional testing such as HIV testing. Patient advised that cultures are still pending and that we will call for any change in care needed. - Vital Signs Vital signs: Temp Pulse Resp BP Pulse Ox 98.5 F 106 H 18 132/95 H 99 01/24/18 17:48 01/24/18 17:48 01/24/18 17:48 01/24/18 17:48 01/24/18 17:48 - Laboratory Laboratory results interpreted by me: 01/24/18 23:19 Labs- Entire Visit 01/24/18 01/24/18 01/24/18 20:00 20:23 20:23 Urine Color YELLOW Urine Appearance CLOUDY Urine pH 6.0 Ur Specific Harrod 1.008 Urine Protein NEGATIVE Urine Glucose (UA) NEGATIVE Urine Ketones NEGATIVE Urine Blood MODERATE H Urine Nitrite NEGATIVE Urine Bilirubin NEGATIVE Urine Urobilinogen NEGATIVE Ur Leukocyte Esterase LARGE H Urine WBC (Auto) 144 Urine RBC (Auto) 39 Urine WBC Clumps FEW Squamous Epi Cells Auto 10 Amorphous Sediment Auto TRACE Urine Mucus (Auto) RARE Urine Ascorbic Acid NEGATIVE Urine HCG, Qual NEGATIVE Epi Cells (Wet Prep) 4+ EPITHELIALS SEEN Bacteria (Wet Prep) 4+ BACTERIA SEEN Trichomonas (Wet Prep) TRICHOMONAS SEEN Vaginal WBC 4+ WBCS SEEN Vaginal RBC FEW RBCS SEEN Vaginal Yeast NO YEAST SEEN Chlamydia DNA (PCR) NOT DETECTED N.gonorrhoeae DNA (PCR) NOT DETECTED Discharge - Discharge Clinical Impression: Herpes, Trichomoniasis, Bacterial vaginosis UTI (urinary tract infection) Qualifiers: Urinary tract infection type: site unspecified Hematuria presence: with hematuria Qualified Code(s): N39.0 - Urinary tract infection, site not specified Condition: Stable Disposition: HOME, SELF-CARE Instructions: Cephalexin ([facility]), Genital Herpes ([facility]), Metronidazole ([facility]), Trichomonas Infection ([facility]), Vaginosis, Bacterial ([facility]) Additional Instructions: Return immediately for any new or worsening symptoms Followup with your primary care provider, call tomorrow to make a followup appointment Safe sex practices Cultures are pending, we will call if you need any different treatment Let her partner know that you tested positive for trichomonas as they will need to be treated as well Prescriptions: Cephalexin Monohydrate [Keflex 500 mg Capsule] 500 mg PO BID 7 Days capsule Metronidazole [Flagyl 500 mg Tablet] 500 mg PO BID #14 tablet Valacyclovir HCl [Valacyclovir] 1,000 mg PO BID #14 tablet Forms: Smoking Cessation Education Referrals: JULIET RENEE MD [Primary Care Provider] - Follow up as needed [facility] [NO LOCAL MD] - Follow up tomorrow
[2018-01-24 20:55] LABS: BACTERIA (WET MOUNT) 4+ BACTERIA SEEN; EPITHELIALS (WET MOUNT) 4+ EPITHELIALS SEEN; RBCS (WET MOUNT) FEW RBCS SEEN; T.VAGINALIS (WET MOUNT) TRICHOMONAS SEEN; WBCS (WET MOUNT) 4+ WBCS SEEN; YEAST (WET MOUNT) NO YEAST SEEN
[2018-01-24 21:05] LABS: AMORPHOUS SEDIMENT,URINE TRACE /HPF; APPEARANCE,URINE CLOUDY; BILIRUBIN,URINE NEGATIVE (NEGATIVE); COLOR,URINE YELLOW; GLUCOSE, URINE NEGATIVE (NEGATIVE); KETONES,URINE NEGATIVE (NEGATIVE); LEUKOCYTE ESTERASE,URINE LARGE (NEGATIVE); NITRITE,URINE NEGATIVE (NEGATIVE); PROTEIN,URINE NEGATIVE (NEGATIVE); URINE SPECIFIC GRAVITY 1.008; UROBILINOGEN,URINE NEGATIVE mg/dL (<2.0)
[2018-01-24] MEDS ORDERED: METRONIDAZOLE 500 MG TABLET PO ONE (21:56)
[2018-01-24 22:21] LABS: CHLAM PCR NOT DETECTED (NOT DETECT); GON PCR NOT DETECTED (NOT DETECT)
== END 2018-01-24 22:33 | disposition home or self-care (01) ==
LOC: ER 17:40
DX: B00.9 Herpesviral infection, unspecified (principal); A59.00 Urogenital trichomoniasis, unspecified; N76.0 Acute vaginitis; B96.89 Other specified bacterial agents as the cause of diseases classified elsewhere; N39.0 Urinary tract infection, site not specified; R31.9 Hematuria, unspecified; F17.200 Nicotine dependence, unspecified, uncomplicated; J45.909 Unspecified asthma, uncomplicated; Z91.040 Latex allergy status
CPT/HCPCS: 99283; 96372; 87086; 87210; 81025; 87088; 81001; 87250; 87491; 87591; J3490; J0696

== ENCOUNTER 2018-02-17 10:12 | Emergency (ER) | payer OTHER ==
[2018-02-17] MEDS ORDERED: EPINEPHRINE INJ/PF 1 MG/1 ML AMPULE ONE (10:24)
[2018-02-17] MEDS ORDERED: EPINEPHRINE INJ/PF 1 MG/1 ML AMPULE IM ONE (10:26)
[2018-02-17] MEDS ORDERED: DIPHENHYDRAMINE HCL 50 MG/ML VIAL IV ONE (10:27)
[2018-02-17] MEDS ORDERED: METHYLPREDNISOLONE INJ 125 MG/2 ML SDV IV ONE (10:27)
[2018-02-17] MEDS ORDERED: NORMAL SALINE 1000 ML 1,000 ML IV ONE (10:27)
--- NOTE | 2018-02-17 10:33 | ER Document Report ---
ED Allergic Reaction - General Chief Complaint: Allergic Reaction Stated Complaint: POSSIBLE ALLERGIC REACTION Time Seen by Provider: 02/17/18 10:21 Mode of Arrival: Wheelchair Information source: Patient, Parent TRAVEL OUTSIDE OF THE [place] IN LAST 30 DAYS: No - HPI Patient complains to provider of: Margie Onset: Other - 27-year-old female with a complex past medical history that presents for evaluation of flushed feeling shortness of breath as well as abdominal cramps that started after taking Tessalon Perle as well as amoxicillin for bronchitis at home. She presented immediately thereafter. She is not taking anything else to try and help with this. She is had allergic reactions in the past but never anything this extreme in the past. - Related Data Allergies/Adverse Reactions: amoxicillin Allergy (Severe, Verified 02/17/18 10:42) banana [Banana] Allergy (Severe, Verified 02/17/18 10:42) Anaphylaxis fluticasone propionate [From Flonase] Allergy (Intermediate, Verified 02/17/18 10:42) nasal congestion levothyroxine sodium [Levothyroxine Sodium] Allergy (Mild, Verified 02/17/18 10: 42) Beef Containing Products Allergy (Verified 02/17/18 10:42) latex Allergy (Verified 02/17/18 10:42) loratadine [From Claritin] Allergy (Verified 02/17/18 10:42) Pork/Porcine Containing Products Allergy (Verified 02/17/18 10:42) raspberry Allergy (Verified 02/17/18 10:42) methocarbamol [From Robaxin] Adverse Reaction (Severe, Verified 02/17/18 10:42) Past Medical History - General Information source: Patient - Social History Smoking Status: Former Smoker Family History: Reviewed & Not Pertinent - Past Medical History Cardiac Medical History: Reports: Hx Hypertension Pulmonary Medical History: Reports: Hx Asthma Neurological Medical History: Reports: Hx Seizures Endocrine Medical History: Reports: Hx Hypothyroidism Renal/ Medical History: Denies: Hx Peritoneal Dialysis GI Medical History: Reports: Hx Diverticulitis, Hx Gastritis, Hx Gastroesophageal Reflux Disease, Hx Hiatal Hernia Musculoskeletal Medical History: Reports Hx Musculoskeletal Trauma Psychiatric Medical History: Reports: Hx Anxiety, Hx Bipolar Disorder, Hx Borderline Personality Disorder, Hx Depression, Hx Schizophrenia Traumatic Medical History: Reports: Hx Fractures - 5th toe bilaterally Past Surgical History: Reports: Hx Cholecystectomy - Immunizations Hx Diphtheria, Pertussis, Tetanus Vaccination: Yes Review of Systems - Review of Systems -: Yes All other systems reviewed and negative Physical Exam - Vital signs Vitals: Pulse Ox 100 02/17/18 10:18 Interpretation: Hypertensive, Tachycardic, Tachypneic - General General appearance: Alert, Anxious In distress: Mild - HEENT Head: Normocephalic, Atraumatic Eyes: Normal Pupils: PERRL Nerve palsy: No Visual bowser normal: No Notes: Flushed face - Respiratory Respiratory status: Tachypnea Chest status: Nontender Breath sounds: Wheezing - Superior lung bowser - Cardiovascular Rhythm: Regular, Tachycardia Heart sounds: Normal auscultation Murmur: No - Abdominal Inspection: Normal Distension: No distension Tenderness: Tender - Diffusely tender no rebound no guarding - Back Back: Normal, Nontender - Extremities General upper extremity: Normal inspection, Nontender, Normal color, Normal ROM , Normal temperature General lower extremity: Normal inspection, Nontender, Normal color, Normal ROM , Normal temperature, Normal weight bearing. No: Edson's sign - Neurological Neuro grossly intact: Yes Cognition: Normal Orientation: AAOx4 [place] Coma Scale Eye Opening: Spontaneous [place] Coma Scale Verbal: Oriented [place] Coma Scale Motor: Obeys Commands [place] Coma Scale Total: 15 Speech: Normal Motor strength normal: LUE, RUE, LLE, RLE Sensory: Normal - Psychological Associated symptoms: Normal affect, Normal mood Course - Re-evaluation Re-evalutation: 02/17/18 10:32 27-year-old female who presents for evaluation of a reaction to medications that she took this morning for bronchitis including Tessalon Perle as well as amoxicillin. On examination she has flushed skin, is wheezing and has cramping in the abdomen. She qualifies for anaphylaxis. We will initiate IV access, have ordered emergent administration of IM epinephrine 0.3 mg. Will administer IV fluids 1 L, bolus. We will administer steroid. Will administer Benadryl. Plan for reassessment and monitoring in emergency department for approximately 3 hours. 02/17/18 13:21 On reassessment patient's work of breathing is normal, she has had 3 hours in the emergency department without any adverse events. Her symptoms improved after the administration of EpiPen. Believe she is likely safe for discharge home with return precautions, she will be given a prescription for an EpiPen as well as a brief course of steroids. She is in agreement with this plan at this time. - Vital Signs Vital signs: Temp Pulse Resp BP Pulse Ox 98.1 F 96 17 115/61 93 02/17/18 10:44 02/17/18 10:44 02/17/18 13:00 02/17/18 12:51 02/17/18 13:00 Discharge - Discharge Clinical Impression: Penicillin allergy Anaphylaxis Qualifiers: Encounter type: initial encounter Qualified Code(s): T78.2XXA - Anaphylactic shock, unspecified, initial encounter Condition: Good Disposition: HOME, SELF-CARE Instructions: Anaphylaxis Kit ([facility]), Acute Allergic Reaction ([facility]) Additional Instructions: You were seen today in the emergency department for your allergic reaction. YOu had an evaluation including a physical exam and administration of an EpiPen as well as cardiac monitoring for approximately 3 hours. It appears that you had a an allergic reaction to penicillin. Do not take penicillins moving forward. You been given a prescription for an EpiPen, you should carry this with you at all times. Prescriptions: Epinephrine [Epipen 2-José Miguel] 0.3 mg IJ Q20MP PRN #1 auto.injct PRN Reason: Prednisone 50 mg PO DAILY #2 tablet Forms: Return to Work Referrals: JULIET RENEE MD [HONORARY] - Follow up as needed
[2018-02-17 14:03] VITALS: BP 103/66
== END 2018-02-17 14:03 | disposition home or self-care (01) ==
LOC: ER 10:12
DX: T78.2XXA Anaphylactic shock, unspecified, initial encounter (principal); L50.9 Urticaria, unspecified; X58.XXXA Exposure to other specified factors, initial encounter; I10 Essential (primary) hypertension; E03.9 Hypothyroidism, unspecified; Z88.0 Allergy status to penicillin; Z91.040 Latex allergy status; Z90.49 Acquired absence of other specified parts of digestive tract
CPT/HCPCS: 99283; 96372; 96361; 96374; 96375; J1200; J0171; J2930; J7030

== ENCOUNTER 2018-05-17 18:33 | Emergency (ER) | payer OTHER ==
[2018-05-17] MEDS ORDERED: IPRATROPIUM/ALBUTEROL 0.5-2.5 MG/3 ML AMPUL NEB ONE (19:49)
--- NOTE | 2018-05-17 19:51 | ER Document Report ---
ED Medical Screen (RME) - General Chief Complaint: Nausea/Vomiting Stated Complaint: VOMITING, COUGH, WEAKNESS Time Seen by Provider: 05/17/18 19:48 Mode of Arrival: Ambulatory Information source: Patient, [facility] Records Notes: 27-year-old female with asthma presents with cough, rhinorrhea, subjective fevers for 1 week. I have greeted and performed a rapid initial assessment of this patient. A comprehensive ED assessment and evaluation of the patient, analysis of test results and completion of medical decision making process we will be contacted by additional ED providers. PHYSICAL EXAMINATION: Vital signs reviewed-within normal limits GENERAL: Well-appearing, well-nourished and in no acute distress. LUNGS: No respiratory distress Musculoskeletal: Normal range of motion NEUROLOGICAL: Normal speech, normal gait. PSYCH: Normal mood, normal affect. SKIN: Warm, Dry, normal turgor, no rashes or lesions noted. TRAVEL OUTSIDE OF THE [place] IN LAST 30 DAYS: No - HPI Onset: Last week Onset/Duration: Persistent Quality of pain: Achy Associated Symptoms: Cough (productive), Fever, Vomiting Exacerbated by: Coughing Relieved by: Denies Recently seen / treated by doctor: No - Related Data Smoking: Cigarettes Frequency of alcohol use: None Drug Abuse: None Allergies/Adverse Reactions: amoxicillin Allergy (Severe, Verified 02/17/18 10:42) banana [Banana] Allergy (Severe, Verified 02/17/18 10:42) Anaphylaxis fluticasone propionate [From Flonase] Allergy (Intermediate, Verified 02/17/18 10:42) nasal congestion levothyroxine sodium [Levothyroxine Sodium] Allergy (Mild, Verified 02/17/18 10:42) Beef Containing Products Allergy (Verified 02/17/18 10:42) latex Allergy (Verified 02/17/18 10:42) loratadine [From Claritin] Allergy (Verified 02/17/18 10:42) Pork/Porcine Containing Products Allergy (Verified 02/17/18 10:42) raspberry Allergy (Verified 02/17/18 10:42) methocarbamol [From Robaxin] Adverse Reaction (Severe, Verified 02/17/18 10:42) Past Medical History - Social History Chew tobacco use (# tins/day): No Frequency of alcohol use: None - Past Medical History Cardiac Medical History: Reports: Hx Hypertension Pulmonary Medical History: Reports: Hx Asthma Neurological Medical History: 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 Endocrine Medical History: Reports: Hx Hypothyroidism Renal/ Medical History: Denies: Hx Peritoneal Dialysis GI Medical History: Reports: Hx Diverticulitis, Hx Gastritis, Hx Gastroesophageal Reflux Disease, Hx Hiatal Hernia Musculoskeltal Medical History: Reports Hx Musculoskeletal Trauma Psychiatric Medical History: Reports: Hx Anxiety, Hx Bipolar Disorder, Hx Borderline Personality Disorder, Hx Depression, Hx Schizophrenia Traumatic Medical History: Reports: Hx Fractures - 5th toe bilaterally Past Surgical History: Reports: Hx Cholecystectomy - Immunizations Hx Diphtheria, Pertussis, Tetanus Vaccination: Yes Physical Exam - Vital signs Vitals: Temp Pulse Resp BP Pulse Ox 98.6 F 70 16 121/80 99 05/17/18 18:43 05/17/18 18:43 05/17/18 18:43 05/17/18 18:43 05/17/18 18:43 Course - Vital Signs Vital signs: Temp Pulse Resp BP Pulse Ox 98.6 F 70 16 121/80 99 05/17/18 18:43 05/17/18 18:43 05/17/18 18:43 05/17/18 18:43 05/17/18 18:43
--- NOTE | 2018-05-17 20:37 | RADIOLOGY REPORT (SQ) ---
EXAM DESCRIPTION: XR CHEST 2 VIEWS COMPLETED DATE/TME: 05/17/2018 20:16 CLINICAL HISTORY: cough COMPARISON: June 10, 2015 FINDINGS: Cardiac silhouette is within normal limits. Vague 7 mm nodularity projects at the level of the third left anterior rib. This could represent summation of shadows however underlying pulmonary nodule cannot be excluded. Follow-up short-term chest radiograph recommended for further evaluation. There is no focal parenchymal or pleural disease. There is no acute osseous process visualized. Surgical clips in the right upper abdomen compatible prior cholecystectomy. IMPRESSION: No evidence of acute cardiopulmonary disease. Vague 7 mm nodularity projects at the level of the third left anterior rib. This could represent summation of shadows however underlying pulmonary nodule cannot be excluded. Follow-up short-term chest radiograph recommended for further evaluation
[2018-05-17] MEDS ORDERED: HYDROCODONE/ACETAMINOPHEN 5-325 MG (6 TAB/ER DISP) PO PRN (21:25)
[2018-05-17] MEDS ORDERED: BENZONATATE 100 MG CAPSULE PO ONE (21:26)
[2018-05-17] MEDS ORDERED: PREDNISONE 20 MG TABLET PO ONE (21:28)
--- NOTE | 2018-05-17 21:28 | ER Document Report ---
ED General - General Chief Complaint: Nausea/Vomiting Stated Complaint: VOMITING, COUGH, WEAKNESS Time Seen by Provider: 05/17/18 19:48 Primary Care Provider: [facility] [Primary Care Provider] - Follow up as needed Mode of Arrival: Ambulatory Notes: 27-year-old female patient emergency department complaining of a cough getting worse over the last several days. States that she has a long-standing history of asthma, anaphylaxis, respiratory problems. Recently started trying to stop smoking. Has not smoked in a few days. Cough has gotten worse. States that she has taken some benzonatate tablets at home and it does not seem to be working. TRAVEL OUTSIDE OF THE [place] IN LAST 30 DAYS: No - HPI Onset/Duration: Gradual, Waxing and waning Severity: Mild Associated symptoms: Nonproductive cough - Related Data Allergies/Adverse Reactions: amoxicillin Allergy (Severe, Verified 02/17/18 10:42) banana [Banana] Allergy (Severe, Verified 02/17/18 10:42) Anaphylaxis fluticasone propionate [From Flonase] Allergy (Intermediate, Verified 02/17/18 10:42) nasal congestion levothyroxine sodium [Levothyroxine Sodium] Allergy (Mild, Verified 02/17/18 10:42) Beef Containing Products Allergy (Verified 02/17/18 10:42) latex Allergy (Verified 02/17/18 10:42) loratadine [From Claritin] Allergy (Verified 02/17/18 10:42) Pork/Porcine Containing Products Allergy (Verified 02/17/18 10:42) raspberry Allergy (Verified 02/17/18 10:42) methocarbamol [From Robaxin] Adverse Reaction (Severe, Verified 02/17/18 10:42) Past Medical History - General Information source: Patient, [facility] Records - Social History Smoking Status: Former Smoker Chew tobacco use (# tins/day): No Frequency of alcohol use: None Drug Abuse: None Lives with: Family Family History: Reviewed & Not Pertinent Patient has suicidal ideation: No Patient has homicidal ideation: No - Past Medical History Cardiac Medical History: Reports: Hx Hypertension Pulmonary Medical History: Reports: Hx Asthma Neurological Medical History: 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 Endocrine Medical History: Reports: Hx Hypothyroidism Renal/ Medical History: Denies: Hx Peritoneal Dialysis GI Medical History: Reports: Hx Diverticulitis, Hx Gastritis, Hx Gastroesophageal Reflux Disease, Hx Hiatal Hernia Musculoskeletal Medical History: Reports Hx Musculoskeletal Trauma Psychiatric Medical History: Reports: Hx Anxiety, Hx Bipolar Disorder, Hx Borderline Personality Disorder, Hx Depression, Hx Schizophrenia Traumatic Medical History: Reports: Hx Fractures - 5th toe bilaterally Past Surgical History: Reports: Hx Cholecystectomy - Immunizations Hx Diphtheria, Pertussis, Tetanus Vaccination: Yes Review of Systems - Review of Systems Constitutional: denies: Fever, Malaise, Weakness EENT: Blurred vision. denies: Throat pain, Difficulty swallowing Cardiovascular: denies: Chest pain, Palpitations, Heart racing Respiratory: Cough, Wheezing. denies: Hurts to breathe, Short of breath Gastrointestinal: denies: Abdominal pain, Diarrhea, Nausea, Vomiting Genitourinary: denies: Burning, Dysuria, Discharge Skin: denies: Change in hair/nails, Dryness, Lesions, Rash Hematologic/Lymphatic: denies: Anemia, Blood clots, Easy bleeding, Easy bruising Neurological/Psychological: denies: Confusion, Weakness, Numbness Physical Exam - Vital signs Vitals: Temp Pulse Resp BP Pulse Ox 98.6 F 70 16 121/80 99 05/17/18 18:43 05/17/18 18:43 05/17/18 18:43 05/17/18 18:43 05/17/18 18:43 Interpretation: Normal - General General appearance: Appears well, Alert - HEENT Head: Normocephalic, Atraumatic Eyes: Normal Pupils: PERRL - Respiratory Respiratory status: No respiratory distress Chest status: Nontender Breath sounds: Nonproductive cough, Wheezing Chest palpation: Normal - Cardiovascular Rhythm: Regular Heart sounds: Normal auscultation Murmur: No - Abdominal Inspection: Normal Distension: No distension Bowel sounds: Normal Tenderness: Nontender Organomegaly: No organomegaly - Back Back: Normal, Nontender - Extremities General upper extremity: Normal inspection, Nontender, Normal color, Normal ROM, Normal temperature General lower extremity: Normal inspection, Nontender, Normal color, Normal ROM, Normal temperature, Normal weight bearing. No: Edson's sign - Neurological Neuro grossly intact: Yes Cognition: Normal Orientation: AAOx4 [place] Coma Scale Eye Opening: Spontaneous [place] Coma Scale Verbal: Oriented [place] Coma Scale Motor: Obeys Commands [place]row Coma Scale Total: 15 Speech: Normal Motor strength normal: LUE, RUE, LLE, RLE Sensory: Normal - Psychological Associated symptoms: Normal affect, Normal mood - Skin Skin Temperature: Warm Skin Moisture: Dry Skin Color: Normal Course - Re-evaluation Re-evalutation: 05/17/18 21:29 Is a well-appearing 27 old female in no acute distress. Has a cough with wheeze with a long-standing history of asthma. At this time I am going to treat her with some cough suppressant, prednisone. States that her symptoms have been present now for almost a week and a half. We will prescribe her an antibiotic and treated more as like a COPD exacerbation. 05/17/18 21:31 Chest X-Ray 05/17/18 19:49 IMPRESSION: No evidence of acute cardiopulmonary disease. Vague 7 mm nodularity projects at the level of the third left anterior rib. This could represent summation of shadows however underlying pulmonary nodule cannot be excluded. Follow-up short-term chest radiograph recommended for further evaluation - Vital Signs Vital signs: Temp Pulse Resp BP Pulse Ox 98.6 F 70 16 121/80 99 05/17/18 18:43 05/17/18 18:43 05/17/18 18:43 05/17/18 18:43 05/17/18 18:43 Discharge - Discharge Clinical Impression: Cough Condition: Good Disposition: HOME, SELF-CARE Instructions: Cough Suppressant & Expectorant Medications, Bronchitis With Bronchospasm (Wheezing) ([facility]) Additional Instructions: Of note, your chest x-ray did show a vague shadow which is probably normal but the radiologist recommends that you have a repeat chest x-ray performed in 4 weeks to make sure that there is no significant pathology there. Prescriptions: Azithromycin [Zithromax 250 mg Tablet] 250 mg PO DAILY 5 Days #6 tablet Prednisone [Deltasone 20 mg Tablet] 3 tab PO DAILY 3 Days #9 tablet Referrals: [facility] [Primary Care Provider] - Follow up as needed
[2018-05-17 22:00] VITALS: BP 121/69
== END 2018-05-17 22:01 | disposition home or self-care (01) ==
LOC: ER 18:33
DX: R05 Cough (principal); J45.909 Unspecified asthma, uncomplicated; H53.8 Other visual disturbances; I10 Essential (primary) hypertension; Z87.892 Personal history of anaphylaxis; Z91.018 Allergy to other foods; Z88.0 Allergy status to penicillin; Z88.8 Allergy status to other drugs, medicaments and biological substances; Z91.040 Latex allergy status; Z87.891 Personal history of nicotine dependence
CPT/HCPCS: 94640; 99284; 71046; J7512; J7620

== ENCOUNTER → 2018-08-06 | Outpatient (CLI) | payer OTHER | LOC: CCC 11:43 | DX: E03.9 Hypothyroidism, unspecified (principal); Z13.9 Encounter for screening, unspecified | CPT/HCPCS: 36415; 84443; 86701 ==

== ENCOUNTER 2018-10-19 17:59 | Emergency (ER) | payer OTHER ==
--- NOTE | 2018-10-19 19:19 | RADIOLOGY REPORT (SQ) ---
EXAM DESCRIPTION: CHEST 2 VIEWS COMPLETED DATE/TIME: 10/19/2018 7:08 pm REASON FOR STUDY: wheelchair COMPARISON: 05/17/2018. EXAM PARAMETERS: NUMBER OF VIEWS: two views TECHNIQUE: Digital Frontal and Lateral radiographic views of the chest acquired. RADIATION DOSE: NA LIMITATIONS: none FINDINGS: LUNGS AND PLEURA: No opacities, masses or pneumothorax. No pleural effusion. MEDIASTINUM AND HILAR STRUCTURES: No masses or contour abnormalities. HEART AND VASCULAR STRUCTURES: Heart normal size. No evidence for failure. BONES: No acute findings. HARDWARE: None in the chest. OTHER: No other significant finding. IMPRESSION: NO ACUTE RADIOGRAPHIC FINDING IN THE CHEST. TECHNICAL DOCUMENTATION: JOB ID: [id number] [employer]- All Rights Reserved Reading location - IP/workstation name: [email or web address]
[2018-10-19] MEDS ORDERED: DEXAMETHASONE SOD PHOS INJ 10 MG/1 ML VIAL IM ONE (20:18)
[2018-10-19] MEDS ORDERED: ALBUTEROL SULFATE 0.083% NEB 2.5 MG/3 ML AMPUL NEB ONE (20:19)
[2018-10-19] MEDS ORDERED: IPRATROPIUM/ALBUTEROL 0.5-2.5 MG/3 ML AMPUL NEB ONE (20:19)
--- NOTE | 2018-10-19 20:25 | ER Document Report ---
ED Respiratory Problem - General Chief Complaint: Shortness Of Breath Stated Complaint: COUGH Time Seen by Provider: 10/19/18 20:05 [facility] Provider: [facility] [Primary Care Provider] - Follow up as needed Mode of Arrival: Ambulatory Information source: Patient Notes: 27-year-old female presents the ED for complaint of cough cold congestion short of breath cough is keeping her awake at night. She states she has not had any fevers. Patient has had many visits to the emergency room for similar symptoms. She is alert oriented respirations regular unlabored she does have a mild expiratory wheeze. TRAVEL OUTSIDE OF THE [place] IN LAST 30 DAYS: No - HPI Patient complains to provider of: Asthma, Cough, Short of breath Onset: Other - This is day4 Duration: Continuous Initiating Event: URI Quality of pain: Achy, Burning Severity: Moderate Pain Level: 2 Context: Hx asthma Cough: Nonproductive Sputum amount: None At home treatment: Bronchodilators Associated symptoms: Chest pain/discomfort, Congestion, Cough, PND, Runny nose, Sinus pain/pressure, Short of breath, Sore Throat Similar symptoms previously: Yes Recently seen / treated by doctor: Yes - Related Data Allergies/Adverse Reactions: amoxicillin Allergy (Severe, Verified 02/17/18 10:42) banana [Banana] Allergy (Severe, Verified 02/17/18 10:42) Anaphylaxis fluticasone propionate [From Flonase] Allergy (Intermediate, Verified 02/17/18 10:42) nasal congestion levothyroxine sodium [Levothyroxine Sodium] Allergy (Mild, Verified 02/17/18 10:42) Beef Containing Products Allergy (Verified 02/17/18 10:42) latex Allergy (Verified 02/17/18 10:42) loratadine [From Claritin] Allergy (Verified 02/17/18 10:42) Pork/Porcine Containing Products Allergy (Verified 02/17/18 10:42) raspberry Allergy (Verified 02/17/18 10:42) methocarbamol [From Robaxin] Adverse Reaction (Severe, Verified 02/17/18 10:42) Past Medical History - General Information source: Patient - Social History Smoking Status: Never Smoker Frequency of alcohol use: None Drug Abuse: None Lives with: Family Family History: Reviewed & Not Pertinent Patient has suicidal ideation: No Patient has homicidal ideation: No - Past Medical History Cardiac Medical History: Reports: Hx Hypertension Pulmonary Medical History: Reports: Hx Asthma EENT Medical History: Reports: None Neurological Medical History: 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 Endocrine Medical History: Reports: Hx Hypothyroidism Renal/ Medical History: Reports: None Malignancy Medical History: Reports: None GI Medical History: Reports: Hx Diverticulitis, Hx Gastritis, Hx Gastroesophageal Reflux Disease, Hx Hiatal Hernia Musculoskeletal Medical History: Reports Hx Arthritis, Reports Hx Fibromyalgia, Reports Hx Musculoskeletal Trauma Psychiatric Medical History: Reports: Hx Anxiety, Hx Bipolar Disorder, Hx Borderline Personality Disorder, Hx Depression, Hx Schizophrenia Traumatic Medical History: Reports: Hx Fractures - 5th toe bilaterally Infectious Medical History: Reports: None Past Surgical History: Reports: Hx Cholecystectomy - Immunizations Hx Diphtheria, Pertussis, Tetanus Vaccination: Yes Review of Systems - Review of Systems Constitutional: Chills, Recent illness EENT: Nose congestion, Nose discharge, Sinus discharge, Throat pain Cardiovascular: No symptoms reported Respiratory: Cough, Short of breath, Wheezing. denies: Sputum Gastrointestinal: No symptoms reported Genitourinary: No symptoms reported Female Genitourinary: No symptoms reported Musculoskeletal: No symptoms reported Skin: No symptoms reported Hematologic/Lymphatic: No symptoms reported Neurological/Psychological: No symptoms reported -: Yes All other systems reviewed and negative Physical Exam - Vital signs Vitals: Temp Pulse Resp BP Pulse Ox 98.1 F 76 20 130/88 H 95 10/19/18 18:33 10/19/18 18:33 10/19/18 18:33 10/19/18 18:33 10/19/18 18:33 Interpretation: Normal - General General appearance: Appears well, Alert - HEENT Head: Normocephalic, Atraumatic Eyes: Normal Pupils: PERRL Ears: Normal External canal: Normal Tympanic membrane: Normal Sinus: Normal Nasal: Purulent discharge, Swelling Mouth/Lips: Normal Mucous membranes: Normal Pharynx: Post nasal drainage Neck: Normal - Respiratory Respiratory status: No respiratory distress Chest status: Nontender Breath sounds: Nonproductive cough, Wheezing. No: Productive cough, Rales, Rhonchi, Stridor Chest palpation: Normal - Cardiovascular Rhythm: Regular Heart sounds: Normal auscultation Murmur: No - Abdominal Inspection: Normal Distension: No distension Bowel sounds: Normal Tenderness: Nontender Organomegaly: No organomegaly - Back Back: Normal, Nontender - Extremities General upper extremity: Normal inspection, Nontender, Normal color, Normal ROM, Normal temperature General lower extremity: Normal inspection, Nontender, Normal color, Normal ROM, Normal temperature, Normal weight bearing. No: Edson's sign - Neurological Neuro grossly intact: Yes Cognition: Normal Orientation: AAOx4 Clayton Coma Scale Eye Opening: Spontaneous Clayton Coma Scale Verbal: Oriented Clayton Coma Scale Motor: Obeys Commands Woodrow Coma Scale Total: 15 Speech: Normal Motor strength normal: LUE, RUE, LLE, RLE Sensory: Normal - Psychological Associated symptoms: Normal affect, Normal mood - Skin Skin Temperature: Warm Skin Moisture: Dry Skin Color: Normal Course - Re-evaluation Re-evalutation: 10/19/18 21:46 Patient has a history of asthma and had a very mild inspiratory wheeze at first assessment. After breathing treatment she did not have any wheezing lungs were clear with good air exchange. Patient was discharged home with prescription for prednisone and albuterol nebulizer medication for her nebulizer. Patient has a albuterol inhaler also. Patient was precautioned not to use nebulizer more than 2 days times a day or for more than 2 days without following up with her primary doctor. Patient was instructed to follow-up with primary doctor within the next 2 to 3 days. Patient verbalized understanding and agreement with treatment plan. - Vital Signs Vital signs: Temp Pulse Resp BP Pulse Ox 97.4 F 82 20 126/97 H 100 10/19/18 20:54 10/19/18 20:54 10/19/18 20:16 10/19/18 20:54 10/19/18 20:54 - Diagnostic Test Radiology reviewed: Image reviewed, Reports reviewed Discharge - Discharge Clinical Impression: Asthma exacerbation, mild URI (upper respiratory infection) Qualifiers: URI type: unspecified viral URI Qualified Code(s): J06.9 - Acute upper respiratory infection, unspecified Condition: Stable Disposition: HOME, SELF-CARE Additional Instructions: UPPER RESPIRATORY ILLNESS: You have a viral infection of the respiratory passages -- a "cold." This common infection causes nasal congestion, drainage, and often sore throat and cough. It is highly contagious. The disease usually lasts about 10 to 14 days. There is no "cure" for the viral infection -- it must run its course. If there is a complication, such as bacterial infection in the nose, sinuses, middle ear, or bronchial tubes, antibiotics may be required. The antibiotics won't affect the virus. Drink plenty of fluids. A humidifier may help. An expectorant medication or decongestant may make you more comfortable. Use acetaminophen or ibuprofen for fever or aches. See the doctor if fever persists over two days, if there is any significant worsening of your symptoms, or if you simply fail to improve as expected. BRONCHOSPASM: You have tightness in the bronchial tubes, called bronchospasm. This often occurs with bronchial infections. Allergies, inhaled chemicals, and polluted or cold air can also provoke bronchospasm. It's more likely in patients with asthma in the family. Emergency treatment of bronchospasm may include adrenaline shots or bronchodilator aerosol. You may feel lightheaded and have a rapid pulse for an hour or two. Rest and get plenty of fluids. At home, we'll treat you with a bronchodilator inhaler. Antibiotics and corticosteroids may be required for some patients. Until you recover, avoid chemical fumes, dusts, pollens, and exercising in very cold or dry air. If you smoke, stop now!! If you develop a fever, increased wheezing, chest pain, or severe shortness of breath, you should contact the doctor immediately. COUGH-SUPPRESSANT & EXPECTORANT MEDICATION: You are to use a cough medication as needed for relief of symptoms. This medicine is a combination of an expectorant (to make the mucous thinner and more easily "coughed up") and a cough suppressant (to reduce the frequency of coughing). The cough-suppressant medicine is related to narcotics. You may experience mild nausea and sleepiness. Some patients who are very sensitive to narcotics may have stomach pain from this medicine. Taking the medicine with food reduces these side effects. Do not drive or work with machinery until you know how this medicine affects you. The expectorant should have no side effects. Iodine-containing expectorants (such as organidin) should not be taken by persons with active thyroid disease unless approved by your doctor. Call the doctor if you develop shortness of breath, hives, rash, itching, lightheadedness, or severe nausea and vomiting. INHALED BRONCHODILATORS: You have received a treatment of and/or prescription for an inhaled bronchodilator -- a medication which stimulates the airways in the lung to dilate. This improves the flow of air in asthma, bronchitis, and emphysema. These medicines have some similarity to adrenaline, and can cause similar side effects: shakiness, racing heart, and a sense of nervousness. These side effects decrease with time. Contact your doctor if these side effects are severe. Do not over-use the medicine. Too-frequent use of the inhaler may make it ineffective. Call your doctor if the inhaler is not controlling your symptoms at the prescribed doses. STEROID MEDICATION: You have been given an injection of or oral medicine of the cortisone/steroid class. This medication is used to control inflammation or allergy. Ricky t is usually only given for a short period of time, until the acute process subsides. There are usually no side effects from short-term use of cortisone-like medications. Some persons feel an increased sense of well-being and are not sleepy at bedtime. Long-term use of cortisone medications is best avoided, unless required for a severe condition. If your condition does not remit, or relapses after the course of corticosteroid medication, you should consult your physician. USE OF ACETAMINOPHEN (Tylenol): Acetaminophen may be taken for pain relief or fever control. It's much safer than aspirin, offering a wider range of "safe" dosages. It is safe during . Some brand names are Tylenol, Panadol, Datril, Anacin 3, Tempra, and Liquiprin. Acetaminophen can be repeated every four hours. The following are maximum recommended dosages: >89 pounds or adults 650 mg to 900 mg Acetaminophen can be repeated every four hours. Maximum dose not to exceed 4000 mg a day. SMOKING: You state you have not smoked in a week please do not restart smoking If you smoke, you should stop smoking. The tar and chemicals in cigarette smoke are harmful. Smoking has been shown to cause: emphysema chronic bronchitis lung cancer mouth and throat cancer stomach and pancreas cancer premature aging defects In addition, smoking increases ear and lung infections in children of smokers. FOLLOW-UP CARE: If you have been referred to a physician for follow-up care, call the [facility] office for an appointment as you were instructed or within the next two days. If you experience worsening or a significant change in your symptoms, notify the physician immediately or return to the Emergency Department at any time for re-evaluation. Prescriptions: Albuterol Sulfate [Ventolin 0.083% Neb 2.5 mg/3 mL Ampul] 2.5 mg NEB Q4HP PRN #20 vial.neb PRN Reason: For Wheezing Prednisone [Deltasone 20 mg Tablet] 2 tab PO DAILY 3 Days tablet Forms: Elevated Blood Pressure, Return to Work Referrals: [facility] [Primary Care Provider] - Follow up as needed
[2018-10-19 20:56] VITALS: BP 126/97
== END 2018-10-19 21:07 | disposition home or self-care (01) ==
LOC: ER 17:59
DX: J45.901 Unspecified asthma with (acute) exacerbation (principal); Z79.899 Other long term (current) drug therapy; J06.9 Acute upper respiratory infection, unspecified; B97.89 Other viral agents as the cause of diseases classified elsewhere; R06.02 Shortness of breath; R05 Cough; R07.9 Chest pain, unspecified; R09.82 Postnasal drip; R09.81 Nasal congestion; R68.83 Chills (without fever); R09.89 Other specified symptoms and signs involving the circulatory and respiratory systems; J34.89 Other specified disorders of nose and nasal sinuses; J02.9 Acute pharyngitis, unspecified; I10 Essential (primary) hypertension; Z88.0 Allergy status to penicillin; Z87.892 Personal history of anaphylaxis; Z91.018 Allergy to other foods; Z88.8 Allergy status to other drugs, medicaments and biological substances; Z91.040 Latex allergy status
CPT/HCPCS: 71046; J1100; J7620; 94640; 96372; 99284

== ENCOUNTER 2018-10-31 02:42 | Emergency (ER) | payer OTHER ==
[2018-10-31] MEDS ORDERED: IPRATROPIUM/ALBUTEROL 0.5-2.5 MG/3 ML AMPUL NEB ONE ×2 (02:59→03:10)
[2018-10-31 03:01] VITALS: BP 135/88
[2018-10-31] MEDS: PREDNISONE 20 MG TABLET PO ONE ×2 (03:06→03:07)
[2018-10-31] MEDS ORDERED: LIDOCAINE 1% INJ-PF (10 MG/ML) 30 ML SDV NEB ONE (03:10)
[2018-10-31] MEDS ORDERED: METHYLPREDNISOLONE INJ 125 MG/2 ML SDV IV ONE (03:10)
[2018-10-31] MEDS ORDERED: NORMAL SALINE 1000 ML 1,000 ML IV ONE (03:11)
[2018-10-31] MEDS ORDERED: ALBUTEROL SULFATE 0.083% NEB 2.5 MG/3 ML AMPUL NEB SCH (03:14)
--- NOTE | 2018-10-31 03:14 | ER Document Report ---
ED Respiratory Problem - General Chief Complaint: Shortness Of Breath Stated Complaint: DIFFICULTY BREATHING,HEAD PAIN Time Seen by Provider: 10/31/18 03:04 Primary Care Provider: [facility] [Primary Care Provider] - Follow up as needed Notes: Patient is a 28-year-old female with a history of asthma that comes emergency department for chief complaint of cough, wheezing, difficulty breathing. Patient states she recently stopped smoking, she states that for the past 2 weeks she has had trouble with coughing and wheezing. She is completing steroids. She denies fever. She has not been on any antibiotics recently. Remaining medical history includes hypothyroidism, fibromyalgia, TRAVEL OUTSIDE OF THE [place] IN LAST 30 DAYS: No - Related Data Allergies/Adverse Reactions: amoxicillin Allergy (Severe, Verified 02/17/18 10:42) banana [Banana] Allergy (Severe, Verified 02/17/18 10:42) Anaphylaxis fluticasone propionate [From Flonase] Allergy (Intermediate, Verified 02/17/18 10:42) nasal congestion levothyroxine sodium [Levothyroxine Sodium] Allergy (Mild, Verified 02/17/18 10:42) Beef Containing Products Allergy (Verified 02/17/18 10:42) latex Allergy (Verified 02/17/18 10:42) loratadine [From Claritin] Allergy (Verified 02/17/18 10:42) Pork/Porcine Containing Products Allergy (Verified 02/17/18 10:42) raspberry Allergy (Verified 02/17/18 10:42) methocarbamol [From Robaxin] Adverse Reaction (Severe, Verified 02/17/18 10:42) Past Medical History - General Information source: Patient - Social History Smoking Status: Former Smoker Frequency of alcohol use: None Drug Abuse: None Lives with: Family Family History: Reviewed & Not Pertinent - Past Medical History Cardiac Medical History: Reports: Hx Hypertension Pulmonary Medical History: Reports: Hx Asthma Neurological Medical History: 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 Endocrine Medical History: Reports: Hx Hypothyroidism Renal/ Medical History: Denies: Hx Peritoneal Dialysis GI Medical History: Reports: Hx Diverticulitis, Hx Gastritis, Hx Gastroesophageal Reflux Disease, Hx Hiatal Hernia Musculoskeletal Medical History: Reports Hx Arthritis, Reports Hx Fibromyalgia, Reports Hx Musculoskeletal Trauma Psychiatric Medical History: Reports: Hx Anxiety, Hx Bipolar Disorder, Hx Borderline Personality Disorder, Hx Depression, Hx Schizophrenia Traumatic Medical History: Reports: Hx Fractures - 5th toe bilaterally Past Surgical History: Reports: Hx Cholecystectomy - Immunizations Hx Diphtheria, Pertussis, Tetanus Vaccination: Yes Review of Systems - Review of Systems Constitutional: No symptoms reported EENT: No symptoms reported Cardiovascular: No symptoms reported Respiratory: See HPI Gastrointestinal: No symptoms reported Genitourinary: No symptoms reported Female Genitourinary: No symptoms reported Musculoskeletal: No symptoms reported Skin: No symptoms reported Hematologic/Lymphatic: No symptoms reported Neurological/Psychological: No symptoms reported Physical Exam - Vital signs Vitals: Pulse Resp BP Pulse Ox 108 H 30 H 135/88 H 89 L 10/31/18 02:54 10/31/18 02:54 10/31/18 02:54 10/31/18 02:54 - Notes Notes: GENERAL: Anxious, still alert, still interactive HEAD: Normocephalic, atraumatic. EYES: Pupils equal, round, and reactive to light. Extraocular movements intact. ENT: Oral mucosa moist, tongue midline. Oropharynx unremarkable. Airway patent. Nares patent, no nasal septal hematoma, TM's intact. NECK: Full range of motion. Supple. Trachea midline. LUNGS: Scattered expiratory wheezes, still good lung sounds bilaterally, borderline tachypnea, very frequent coughing. HEART: Borderline tachycardia, normal rhythm. No murmur ABDOMEN: Soft, non-tender. Non-distended. Bowel sounds present in all 4 quadrants. GENITOURINARY: Deferred EXTREMITIES: Moves all 4 extremities spontaneously. No edema, normal radial and dorsalis pedis pulses bilaterally. No cyanosis. BACK: no cervical, thoracic, lumbar midline tenderness. No saddle anesthesia, normal distal neurovascular exam. Moves all extremities in full range of motion. NEUROLOGICAL: Alert and oriented x3. Normal speech. Cranial nerves II through XII grossly intact. PSYCH: Anxious, talking rapidly SKIN: Warm, dry, normal turgor. No rashes or lesions noted. Course - Re-evaluation Re-evalutation: Patient recently completed just 3 days of steroids. This is reflected in her CBC with leukocytosis. There is elevation of eosinophils consistent with asthma exacerbation. Venous blood gas unremarkable. Reportedly patient was not 89% on room air initially, I suspect this was with persistent coughing bronchospasm, when I initially evaluated the patient she was coughing constantly but she only had mild expiratory wheezes and she had good airflow bilaterally. She is also able to speak in full sentences. Remaining physical exam is unremarkable. Patient was given a DuoNeb, IV fluids, IV Solu-Medrol. Chest x-ray unremarkable. On reevaluation wheezing is gone, bronchospasm and cough are gone, patient talkative and well-appearing. She is not hypoxic or tachypneic. She appears to have recurrent exacerbations of asthma. She was only on a short course of steroids. She will be discharged, placed on longer course, she was provided with an inhaler from here with spacer. Patient stating that she cannot stop coughing all night when she lies down, she states she is exhausted and has not slept in a couple of days, she does appear very tired. She was provided with syrup as result with precautions. Patient stating she is able to get prescriptions filled sometimes but she is having difficulty with these and she is hoping for better coverage, after discussion with [employer] consult was placed. She is going home with her sister. Discussed follow-up and return precautions. Patient states understanding and agreement. - Vital Signs Vital signs: Temp Pulse Resp BP Pulse Ox 108 H 17 135/88 H 96 10/31/18 02:54 10/31/18 05:00 10/31/18 02:54 10/31/18 05:00 - Laboratory Result Diagrams: 10/31/18 04:01 10/31/18 04:01 Laboratory results interpreted by me: 10/31/18 10/31/18 04:01 04:01 WBC 19.0 H Eos % (Auto) 7.6 H Absolute Neuts (auto) 13.9 H Absolute Eos (auto) 1.4 H Glucose 112 H Discharge - Discharge Clinical Impression: Asthma exacerbation Qualifiers: Asthma severity: moderate Asthma persistence: unspecified Qualified Code(s): J45.901 - Unspecified asthma with (acute) exacerbation Condition: Stable Disposition: HOME, SELF-CARE Additional Instructions: Your work-up is reassuring. Your evaluation is consistent with an asthma exacerbation. Use albuterol inhaler with spacer and home albuterol nebulizer. Take prednisone as prescribed. Use the syrup only as needed for cough to help with sleep. Follow-up with primary care. Return if you worsen including fever, difficulty breathing, or any other concerning or worsening symptoms. Prescriptions: Hydrocodone Bit/Homatropine [Hycodan Syrup 5-1.5 mg/5 ml Ud Cup] 5 ml PO Q4HP PRN #120 ml PRN Reason: Prednisone [Deltasone 20 mg Tablet] 3 tab PO DAILY 5 Days #15 tablet Referrals: [facility] [Primary Care Provider] - Follow up as needed
[2018-10-31] MEDS ORDERED: HYDROCODONE/ACETAMINOPHEN 5-325 MG TABLET PO ONE (03:31)
--- NOTE | 2018-10-31 03:44 | RADIOLOGY REPORT (SQ) ---
EXAM DESCRIPTION: XR CHEST 1 VIEW COMPLETED DATE/TME: 10/31/2018 03:10 CLINICAL HISTORY: 28 years, Female, cough, shortness of breath Comparison: None FINDINGS: No focal lung consolidation. No pleural effusion. No pneumothorax. Cardiac and mediastinal silhouette is unremarkable. No acute osseous abnormality. Soft tissues are unremarkable. IMPRESSION: No acute findings. No focal lung consolidation.
[2018-10-31 04:15] LABS: VENOUS BLOOD HCO3 21.1 mmol/L (20-32); VENOUS BLOOD PCO2 35.4 mmHg (35-63); VENOUS BLOOD PH 7.39 (7.30-7.42)
[2018-10-31 04:17] LABS: ABSOLUTE BASOPHILS # (AUTO) 0.1 10^3/uL (0.0-0.2); ABSOLUTE EOSINOPHILS # (AUTO) 1.4 10^3/uL (0.0-0.6); ABSOLUTE LYMPHOCYTES (AUTO) 2.5 10^3/uL (0.5-4.7); ABSOLUTE NEUT (AUTO) 13.9 10^3/uL (1.7-8.2); BASOPHILS % (AUTO) 0.4 % (0-2); EOSINOPHILS % (AUTO) 7.6 % (0-6); HEMATOCRIT 40.6 % (36.0-47.0); HEMOGLOBIN 13.7 g/dL (12.0-15.5); MEAN CORPUSCULAR HEMOGLOBIN 29.2 pg (27.0-33.4); MEAN CORPUSCULAR HGB CONC 33.7 g/dL (32.0-36.0); MEAN CORPUSCULAR VOLUME 87 fl (80-97); MONOCYTES % (AUTO) 5.5 % (3-13); PLATELET COUNT 334 10^3/uL (150-450); RED BLOOD COUNT 4.68 10^6/uL (3.72-5.28); SEGMENTED NEUTROPHILS % (AUTO) 73.5 % (42-78); TOTAL CELLS COUNTED % (AUTO) 100 %
[2018-10-31] MEDS ORDERED: ONDANSETRON HCL INJ/PF 4 MG/2 ML SDV IV ONE (04:28)
[2018-10-31 04:30] LABS: ANION GAP 9 (5-19); BLOOD UREA NITROGEN 13 mg/dL (7-20); CALCIUM 9.5 mg/dL (8.4-10.2); CARBON DIOXIDE 24 mmol/L (22-30); CHLORIDE 107 mmol/L (98-107); GLUCOSE 112 mg/dL (75-110); POTASSIUM 3.9 mmol/L (3.6-5.0)
[2018-10-31] MEDS ORDERED: HYDROCODONE/ACETAMINOPHEN 5-325 MG (6 TAB/ER DISP) PO PRN (04:45)
[2018-10-31] MEDS ORDERED: ALBUTEROL SULFATE HFA (90 MCG/PUFF) 8 GM MDI (1 MDI/ER DISP) IH ONE (04:46)
[2018-10-31] MEDS ORDERED: ONDANSETRON ODT 4 MG TAB (6 TAB/ER DISP) PO PRN (04:46)
== END 2018-10-31 05:30 | disposition home or self-care (01) ==
LOC: ER 02:42
DX: J45.901 Unspecified asthma with (acute) exacerbation (principal); R06.02 Shortness of breath; R05 Cough; R51 Headache; Z87.891 Personal history of nicotine dependence; I10 Essential (primary) hypertension; F41.9 Anxiety disorder, unspecified
CPT/HCPCS: 94640; 99283; 96361; 96374; 96375; 36415; 84703; 85025; 80048; 82803; 71045; J2930; J2405; J7030; J3490; J7620; J7512

== ENCOUNTER 2018-11-11 15:15 | Emergency (ER) | payer OTHER ==
--- NOTE | 2018-11-11 15:32 | ER Document Report ---
ED Medical Screen (RME) - General Chief Complaint: Shortness Of Breath Stated Complaint: TROUBLE BREATHING Time Seen by Provider: 11/11/18 15:27 Primary Care Provider: [facility] [Primary Care Provider] - Follow up as needed Mode of Arrival: Ambulatory Information source: Patient Notes: 28-year-old female presented to ED for continued cough congestion shortness of breath. She states that she was seen on the and on the and on the they gave her and sent her home with steroids and hydrocodone cough syrup. Patient states she states she was getting much better and then she went back to the house that she was standing when she got sick in the first place and now she is feeling very sick again and is having trouble breathing respirations regular and unlabored lungs are clear to auscultation no wheezing noted at this time. No phlegm nonproductive cough. Patient is alert oriented respirations regular and unlabored nontoxic in appearance. I have greeted and performed a rapid initial assessment of this patient. A comprehensive ED assessment and evaluation of the patient, analysis of test results and completion of medical decision making process will be conducted by an additional ED providers. TRAVEL OUTSIDE OF THE [place] IN LAST 30 DAYS: No - Related Data Allergies/Adverse Reactions: amoxicillin Allergy (Severe, Verified 11/11/18 15:16) banana [Banana] Allergy (Severe, Verified 11/11/18 15:16) Anaphylaxis fluticasone propionate [From Flonase] Allergy (Intermediate, Verified 11/11/18 15:16) nasal congestion levothyroxine sodium [Levothyroxine Sodium] Allergy (Mild, Verified 11/11/18 15:16) Beef Containing Products Allergy (Verified 11/11/18 15:16) latex Allergy (Verified 11/11/18 15:16) loratadine [From Claritin] Allergy (Verified 11/11/18 15:16) Pork/Porcine Containing Products Allergy (Verified 11/11/18 15:16) raspberry Allergy (Verified 11/11/18 15:16) methocarbamol [From Robaxin] Adverse Reaction (Severe, Verified 11/11/18 15:16) Past Medical History - Past Medical History Cardiac Medical History: Reports: Hx Hypertension Pulmonary Medical History: Reports: Hx Asthma Neurological Medical History: 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 Endocrine Medical History: Reports: Hx Hypothyroidism Renal/ Medical History: Denies: Hx Peritoneal Dialysis GI Medical History: Reports: Hx Diverticulitis, Hx Gastritis, Hx Gastroesophageal Reflux Disease, Hx Hiatal Hernia Musculoskeltal Medical History: Reports Hx Arthritis, Reports Hx Fibromyalgia, Reports Hx Musculoskeletal Trauma Psychiatric Medical History: Reports: Hx Anxiety, Hx Bipolar Disorder, Hx Borderline Personality Disorder, Hx Depression, Hx Schizophrenia Traumatic Medical History: Reports: Hx Fractures - 5th toe bilaterally Past Surgical History: Reports: Hx Cholecystectomy - Immunizations Hx Diphtheria, Pertussis, Tetanus Vaccination: Yes Physical Exam - Vital signs Vitals: Temp Pulse Resp BP Pulse Ox 98.2 F 86 18 145/107 H 96 11/11/18 15:20 11/11/18 15:20 11/11/18 15:20 11/11/18 15:20 11/11/18 15:20 Course - Vital Signs Vital signs: Temp Pulse Resp BP Pulse Ox 98.2 F 86 18 145/107 H 96 11/11/18 15:20 11/11/18 15:20 11/11/18 15:20 11/11/18 15:20 11/11/18 15:20 Doctor's Discharge - Discharge Referrals: [facility] [Primary Care Provider] - Follow up as needed
--- NOTE | 2018-11-11 16:36 | ER Document Report ---
ED General - General Chief Complaint: Shortness Of Breath Stated Complaint: TROUBLE BREATHING Time Seen by Provider: 11/11/18 15:27 Primary Care Provider: [facility] [NO LOCAL MD] - Follow up as needed Mode of Arrival: Ambulatory Notes: Patient is here because of difficulty breathing and wheezing. Also, she has been having some and again on October 31. Both times, patient says that she was treated with steroids and she finished her second dose of them about 4 or 5 days ago. Her cough is primarily dry. She is been told she has asthma. She went to [facility] today and they referred her here because of the amount of wheezing she was doing. Patient has been prescribed hydrocodone- containing cough syrup on both of her prior visits. She also describes having a metallic taste in her mouth during all this time. Has not had any significant fevers. Generalized headache. Patient has a history of fibromyalgia and Bk's disease. On thyroid medic ation. On gabapentin for her muscular pains. Has an extensive psychiatric history with schizoaffective disorder, depression, anxiety, personality disorder, and mood problems. TRAVEL OUTSIDE OF THE [place] IN LAST 30 DAYS: No - Related Data Allergies/Adverse Reactions: amoxicillin Allergy (Severe, Verified 11/11/18 15:16) banana [Banana] Allergy (Severe, Verified 11/11/18 15:16) Anaphylaxis fluticasone propionate [From Flonase] Allergy (Intermediate, Verified 11/11/18 15:16) nasal congestion levothyroxine sodium [Levothyroxine Sodium] Allergy (Mild, Verified 11/11/18 15:16) Beef Containing Products Allergy (Verified 11/11/18 15:16) latex Allergy (Verified 11/11/18 15:16) loratadine [From Claritin] Allergy (Verified 11/11/18 15:16) Pork/Porcine Containing Products Allergy (Verified 11/11/18 15:16) raspberry Allergy (Verified 11/11/18 15:16) methocarbamol [From Robaxin] Adverse Reaction (Severe, Verified 11/11/18 15:16) Past Medical History - General Information source: Patient - Social History Smoking Status: Former Smoker Family History: Reviewed & Not Pertinent Patient has suicidal ideation: No Patient has homicidal ideation: No - Past Medical History Cardiac Medical History: Reports: Hx Hypertension - unmedicated Pulmonary Medical History: Reports: Hx Asthma Neurological Medical History: 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 Endocrine Medical History: Reports: Hx Hypothyroidism GI Medical History: Reports: Hx Diverticulitis, Hx Gastritis, Hx Gastroesophageal Reflux Disease, Hx Hiatal Hernia Musculoskeletal Medical History: Reports Hx Arthritis, Reports Hx Fibromyalgia, Reports Hx Musculoskeletal Trauma Psychiatric Medical History: Reports: Hx Anxiety, Hx Bipolar Disorder, Hx Borderline Personality Disorder, Hx Depression, Hx Schizophrenia Traumatic Medical History: Reports: Hx Fractures - 5th toe bilaterally Past Surgical History: Reports: Hx Cholecystectomy - Immunizations Hx Diphtheria, Pertussis, Tetanus Vaccination: Yes Review of Systems - Review of Systems Notes: CONSTITUTIONAL : Denies fever. CARDIOVASCULAR: Denies chest pain. RESPIRATORY: See HPI. GASTROINTESTINAL: Denies abdominal pain or nausea, vomiting, or diarrhea. GENITOURINARY: Denies difficulty or painful urinating, urinary frequency, blood in urine. Physical Exam - Vital signs Vitals: Temp Pulse Resp BP Pulse Ox 98.2 F 86 18 145/107 H 96 11/11/18 15:20 11/11/18 15:20 11/11/18 15:20 11/11/18 15:20 11/11/18 15:20 Interpretation: Normal Notes: PHYSICAL EXAMINATION: GENERAL: Well-appearing, no acute distress. HEAD: Atraumatic, normocephalic. NECK: Normal range of motion, supple. LUNGS: Breath sounds clear except for just 1 or 2 wheezes. Breath sounds are equal bilaterally. HEART: Regular rate and rhythm without murmurs heard. ABDOMEN: Soft, nontender. No guarding or rebound or masses felt. Course - Re-evaluation Re-evalutation: 11/11/18 19:45 I cannot find anything specifically wrong with this patient and I am not sure what else we can do for her here in the emergency department. I am going to put her on a course of prednisone that we will have her take a bolus of several pills for a few days and then 110 mg tablet a day for a couple of weeks and see if that might help. I am going to fill her prescription for some Vicodin for her cough, but I will not do this in the future. - Vital Signs Vital signs: Temp Pulse Resp BP Pulse Ox 98.2 F 81 18 123/83 96 11/11/18 16:58 11/11/18 16:58 11/11/18 16:58 11/11/18 16:58 11/11/18 16:58 Discharge - Discharge Clinical Impression: Asthma Condition: Stable Disposition: HOME, SELF-CARE Additional Instructions: ASTHMA: You have been diagnosed as having asthma. This is a condition where there is episodic tightness in the bronchial tubes. Allergies, infections, and polluted or cold air may be contributing factors. Emergency treatment of a severe asthma attack may include adrenaline shots, or bronchodilator aerosol. You may feel lightheaded, have a decreased exercise tolerance and a rapid pulse for an hour or two. Rest and get plenty of fluids. Home treatment of asthma requires bronchodilator drugs. These can be administered by injection, inhalation, or by mouth. Antibiotics and corticosteroids may be required for some patients. You should avoid chemical fumes, dusts, pollens, and exercising in very cold or dry air. If you smoke, stop!! If you develop a fever, increased wheezing, chest pain, or severe shortness of breath, you should contact the doctor immediately. STEROID MEDICATION: You have been given an injection of or oral medicine of the cortisone/steroid class. This medication is used to control inflammation or allergy. Ricky t is usually only given for a short period of time, until the acute process subsides. There are usually no side effects from short-term use of cortisone-like medications. Some persons feel an increased sense of well-being and are not sleepy at bedtime. Long-term use of cortisone medications is best avoided, unless required for a severe condition. If your condition does not remit, or relapses after the course of corticosteroid medication, you should consult your physician. Oral Narcotic Medication You have been given a prescription for pain control. This medication is a narcotic. It's best taken with food, as nausea can result if taken on an empty stomach. Don't operate machinery or drive within six hours of taking this medication. Do not combine this medicine with alcohol, or with any medication which can cause sedation (such as cold tablets or sleeping pills) unless you get permission from the physician. Narcotics tend to cause constipation. If possible, drink plenty of fluids and eat a diet high in fiber and fruits. FOLLOW-UP CARE: If you have been referred to a physician for follow-up care, call the physicians office for an appointment as you were instructed or within the next two days. If you experience worsening or a significant change in your symptoms, notify the physician immediately or return to the Emergency Department at any time for re-evaluation. Prescriptions: Hydrocodone/Acetaminophen [Randolph 5-325 mg Tablet] 1 tab PO Q6HP PRN #20 tablet PRN Reason: Prednisone [Deltasone 10 mg Tablet] 10 mg PO ASDIR PRN #30 tablet PRN Reason: Referrals: [facility] [NO LOCAL MD] - Follow up as needed
[2018-11-11 17:00] VITALS: BP 123/83
== END 2018-11-11 17:00 | disposition home or self-care (01) ==
LOC: ER 15:15
DX: J45.909 Unspecified asthma, uncomplicated (principal); R51 Headache; I10 Essential (primary) hypertension; Z90.49 Acquired absence of other specified parts of digestive tract; Z91.040 Latex allergy status; Z88.0 Allergy status to penicillin

== ENCOUNTER 2019-03-11 12:51 | Emergency (ER) | payer OTHER ==
[2019-03-11 13:31] VITALS: BP 131/90
--- NOTE | 2019-03-11 14:19 | ER Document Report ---
HPI - HPI Time Seen by Provider: 03/11/19 13:58 Pain Level: 4 - NEURO Neurology: REPORTS: Headache. DENIES: Weakness, Vision blurred, Dizzinesss / Vertigo - RESPIRATORY Respiratory: REPORTS: Coughing - REPRODUCTIVE Reproductive: DENIES: : Past Medical History - Social History Smoking Status: Former Smoker Chew tobacco use (# tins/day): No Frequency of alcohol use: Rare Drug Abuse: None Family History: Reviewed & Not Pertinent Patient has suicidal ideation: No Patient has homicidal ideation: No - Past Medical History Cardiac Medical History: Reports: Hx Hypertension - unmedicated Pulmonary Medical History: Reports: Hx Asthma Neurological Medical History: 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 Endocrine Medical History: Reports: Hx Hypothyroidism Renal/ Medical History: Denies: Hx Peritoneal Dialysis GI Medical History: Reports: Hx Diverticulitis, Hx Gastritis, Hx Gastroesophageal Reflux Disease, Hx Hiatal Hernia Musculoskeletal Medical History: Reports Hx Arthritis, Reports Hx Fibromyalgia, Reports Hx Musculoskeletal Trauma Psychiatric Medical History: Reports: Hx Anxiety, Hx Bipolar Disorder, Hx Borderline Personality Disorder, Hx Depression, Hx Schizophrenia Traumatic Medical History: Reports: Hx Fractures - 5th toe bilaterally Past Surgical History: Reports: Hx Cholecystectomy - Immunizations Hx Diphtheria, Pertussis, Tetanus Vaccination: Yes Vertical Provider Document - CONSTITUTIONAL Notes: 28-year-old female with Bk's thyroiditis and asthma presents to the emergency department chief complaint of flulike symptoms x5 days. Patient states that she has body aches, cough, sinus pressure, intermittent fevers. Patient had a T-max of 103 this morning prompting her to get seen. No neck stiffness, no nausea or vomiting. Patient has tried to take [place] flu and cold and has tried standard cwnx-spa-nokndab treatments with no success. - INFECTION CONTROL TRAVEL OUTSIDE OF THE [place] IN LAST 30 DAYS: No Course - Re-evaluation Re-evalutation: 03/11/19 14:10 Presentation is most consistent with a viral upper respiratory infection. Patie nt is overall well appearance, vitals within normal limits, well-hydrated. Patient denies any headache, neck pain, and has no evidence of meningismus on examination. Lungs are clear bilaterally. No evidence of respiratory distress. Based on clinical exam and history, I do not suspect an acute pneumonia, meningitis, strep pharyngitis, or an acute encephalitis. No laboratory or imaging testing is indicated at this time. Will discharge patient with return precautions and followup recommendations. They are in agreement this plan have verbalized understanding return precautions. - Vital Signs Vital signs: Temp Pulse Resp BP Pulse Ox 98.9 F 93 20 131/90 H 98 03/11/19 13:08 03/11/19 13:08 03/11/19 13:08 03/11/19 13:08 03/11/19 13:08 Discharge - Discharge Clinical Impression: Cough Upper respiratory infection Qualifiers: URI type: unspecified URI Qualified Code(s): J06.9 - Acute upper respiratory infection, unspecified Condition: Good Disposition: HOME, SELF-CARE Instructions: Upper Respiratory Illness ([facility]) Additional Instructions: You have been seen and treated in the emergency department for an upper respiratory infection. These are typically caused by viruses and do not respond to antibiotics. Please make sure you using any prescription medications as prescribed. Please also continue to take [id number] Tylenol thousand milligrams every 6 hours and Motrin 200 mg every 6 hours for your generalized body aches, fever. Please stay well-hydrated and get plenty of rest. Please follow-up with your primary care provider in the next 24 to 48 hours. Please return to the emergency room should you have any other concerning symptoms. Referrals: [facility] [Primary Care Provider] - Follow up as needed
== END 2019-03-11 14:40 | disposition home or self-care (01) ==
LOC: ER 12:51
DX: J06.9 Acute upper respiratory infection, unspecified (principal); R50.9 Fever, unspecified; R51 Headache; E06.3 Autoimmune thyroiditis; M79.10 Myalgia, unspecified site
CPT/HCPCS: 99283

== ENCOUNTER → 2019-05-20 | Outpatient (CLI) | payer OTHER ==
[2019-05-20 13:32] LABS: ABSOLUTE EOSINOPHILS # (AUTO) 0.5 10^3/uL (0.0-0.6); ABSOLUTE LYMPHOCYTES (AUTO) 2.6 10^3/uL (0.5-4.7); ABSOLUTE MONOCYTES (AUTO) 0.5 10^3/uL (0.1-1.4); ABSOLUTE NEUT (AUTO) 4.9 10^3/uL (1.7-8.2); BASOPHILS % (AUTO) 0.5 % (0-2); EOSINOPHILS % (AUTO) 5.9 % (0-6); HEMATOCRIT 43.2 % (36.0-47.0); HEMOGLOBIN 15.1 g/dL (12.0-15.5); LYMPHOCYTES % (AUTO) 30.5 % (13-45); MEAN CORPUSCULAR HEMOGLOBIN 29.7 pg (27.0-33.4); MEAN CORPUSCULAR HGB CONC 34.9 g/dL (32.0-36.0); MEAN CORPUSCULAR VOLUME 85 fl (80-97); MONOCYTES % (AUTO) 5.8 % (3-13); PLATELET COUNT 279 10^3/uL (150-450); RED BLOOD COUNT 5.07 10^6/uL (3.72-5.28); SEGMENTED NEUTROPHILS % (AUTO) 57.3 % (42-78); TOTAL CELLS COUNTED % (AUTO) 100 %; WHITE BLOOD COUNT 8.6 10^3/uL (4.0-10.5)
[2019-05-20 13:56] LABS: ALBUMIN 4.4 g/dL (3.5-5.0); ALKALINE PHOSPHATASE 61 U/L (38-126); ANION GAP 10 (5-19); ASPARTATE AMINO TRANSFERASE 23 U/L (14-36); BILIRUBIN,TOTAL 0.5 mg/dL (0.2-1.3); BLOOD UREA NITROGEN 14 mg/dL (7-20); CALCIUM 9.1 mg/dL (8.4-10.2); CARBON DIOXIDE 24 mmol/L (22-30); CHLORIDE 104 mmol/L (98-107); CHOLESTEROL 192.72 mg/dL (0-200); GLUCOSE 71 mg/dL (75-110); POTASSIUM 4.8 mmol/L (3.6-5.0); TOTAL PROTEIN 7.1 g/dL (6.3-8.2); TRIGLYCERIDES 174 mg/dL (<150)
[2019-05-20 14:07] LABS: DIRECT LDL 134 mg/dL (<100)
[2019-05-20 14:12] LABS: VLDL CHOLESTEROL 34.8 mg/dL (10-31)
--- NOTE | 2019-05-20 17:23 | EKG REPORT ---
SEVERITY:- NORMAL ECG - SINUS RHYTHM : Confirmed by: Patience Smith 20-May-2019 17:23:00
== END ==
LOC: CCC 12:34
DX: E03.9 Hypothyroidism, unspecified (principal); R00.2 Palpitations
CPT/HCPCS: 36415; 80053; 80061; 83036; 84443; 85025; 93005; 93010

== ENCOUNTER → 2019-06-03 | Outpatient (CLI) | payer OTHER ==
--- NOTE | 2019-06-03 16:09 | RADIOLOGY REPORT (SQ) ---
EXAM DESCRIPTION: MRI HEAD WITHOUT COMPLETED DATE/TIME: 06/03/2019 3:54 pm REASON FOR STUDY: R56.9 UNSPECIFIED CONVULSIONS, R55 SYNCOPE AND COLLAPSE R56.9 UNSPECIFIED CONVULS IONS R55 SYNCOPE AND COLLAPSE COMPARISON: None. TECHNIQUE: Multiplanar imaging includes non-contrasted T1, T2, FLAIR, and diffusion with ADC map seq uences. Images stored on PACS. LIMITATIONS: None. FINDINGS: ANATOMY: No anomalies. Normal vascular flow voids. Pituitary fossa normal. CSF SPACES: Normal in size and contour. No hemorrhage. CEREBRUM: Sulci and gyri normal in size and contour. Normal white matter signal on FLAIR imaging. No evidence of hemorrhage, mass, or extraaxial fluid collection. POSTERIOR FOSSA: No signal alteration. No hemorrhage. No edema, masses or mass effect. Internal jennifer tory canals, cerebello-pontine angles, mastoids normal. DIFFUSION IMAGING: Negative for acute or sub-acute infarction. ORBITS: No masses. Globes normal. PARANASAL SINUSES: No fluid levels. OTHER: No other significant finding. IMPRESSION: Normal brain. EVIDENCE OF ACUTE STROKE: NO. TECHNICAL DOCUMENTATION: JOB ID: [id number] 2010 [employer]- All Rights Reserved Reading location - IP/workstation name: [email or web address]
== END ==
LOC: RAD 14:45
PROVIDERS: ATTEND Internal Medicine
DX: R56.9 Unspecified convulsions (principal); R55 Syncope and collapse
CPT/HCPCS: 70551

== ENCOUNTER → 2020-01-12 | Outpatient (CLI) | payer OTHER | LOC: OD 15:55 | PROVIDERS: ATTEND Internal Medicine | DX: E03.9 Hypothyroidism, unspecified (principal) | CPT/HCPCS: 36415; 84443 ==